=== PATIENT | male | born 1945 | race Caucasian/White ===

== ENCOUNTER 2022-12-31 16:41 | Inpatient (IN) | payer MEDICARE, OTHER, SELFPAY ==
[2022-12-31] VITALS (66 sets, daily range): BP systolic 103–177; BP diastolic 71–111; PULSE 78–159; RESP 16–38; TEMP 36.2–36.5; O2SAT 93–100; BMI 27.2; BMI 30.9
--- NOTE | 2022-12-31 16:56 | DI.RAD.S_ITS ---
PROCEDURE: XR CHEST 1V INDICATIONS: chest pain TECHNIQUE: One view of the chest was acquired. COMPARISON: None. FINDINGS: Surgical changes and devices: None. Lungs and pleura: Patchy opacities involving the medial right apex and bilateral lung bases. Suspected small bilateral pleural effusions. Diffuse interstitial prominence. Mediastinum: Mediastinal contours appear normal. Heart size is normal. Bones and chest wall: No suspicious bony lesions. Overlying soft tissues appear unremarkable. IMPRESSION: Patchy areas of airspace opacities involving the right upper lung zone and bilateral lung bases with associated diffuse interstitial prominence and small bilateral pleural effusions. Findings may represent multifocal pneumonia. Recommend follow up chest radiograph 4-6 weeks after treatment to document resolution of findings and/or return to baseline examination. Dictated by: Jose D Rodriguez M.D. on 12/31/2022 at 17:53 Approved by: Jose D Rodriguez M.D. on 12/31/2022 at 17:54
--- NOTE | 2022-12-31 17:11 | ED.GENADULT ---
HPI - General Adult <DO Delgado Campos Last Filed: 01/01/23 07:00> General Chief complaint: Shortness of Breath/Dyspnea Stated complaint: SOB Time Seen by Provider: 12/31/22 16:54 Source: patient Mode of arrival: Ambulatory History of Present Illness HPI narrative: Patient is a 77-year-old male. He does have a distant history of atrial fibrillation. Is not on anticoagulation. He also states he is had a blood clot in his legs in the past but that was many years ago as well. He recently had a [place]country plane ride. He arrived back locally approximately 4 days ago. Since that time he has had bilateral lower extremity swelling. He is also had shortness of breath. No chest pain. No palpitations. Denies any fevers. No abdominal pain. He has been able to take all of his medications. Related Data Home Medications Medication Instructions Recorded Confirmed clobetasol 0.05 % topical ointment 1 applic topical BID 12/31/22 12/31/22 lisinopril 40 mg tablet 40 mg PO DAILY 12/31/22 12/31/22 loratadine 10 mg tablet 10 mg PO DAILY 12/31/22 12/31/22 polyethylene glycol 3350 17 17 g PO DAILY 12/31/22 12/31/22 gram/dose oral powder simvastatin 40 mg tablet 40 mg PO ONCE PM 12/31/22 12/31/22 valacyclovir 1 gram tablet 1,000 mg PO BID 12/31/22 12/31/22 zolpidem 10 mg tablet 10 mg PO ONCE PM PRN Sleep 12/31/22 12/31/22 Allergies Allergy/AdvReac Type Severity Reaction Status Date / Time No Known Drug Allergies Allergy Verified 12/31/22 17:15 Review of Systems <Dimitry Morejon DO - Last Filed: 01/01/23 07:00> Review of Systems ROS Unobtainable: All systems reviewed & are unremarkable except as noted in HPI and below Patient History <Dimitry Morejon DO - Last Filed: 01/01/23 07:00> Social History household members: spouse Smoking Status: Former smoker alcohol intake: current Smoking Status: Former smoker alcohol intake frequency: 0-2 drinks per day Substance Use Type: does not use Exam <DO Delgado Campos Last Filed: 01/01/23 07:00> Initial Vital Signs Initial Vital Signs: Vital Signs Pulse Rate 78 12/31/22 16:44 Pulse Oximetry 97 12/31/22 16:44 Const General: cooperative, comfortable and No ill appearing HENMT Head: normal to inspection and normocephalic Resp Effort & Inspection: normal respiratory effort Auscultation: clear to auscultation bilaterally, no rhonchi and no wheezes Cardio Rate: tachycardic Rhythm: regular rhythm GI Inspection: normal to inspection Palpation: soft and No tender Skin General: no rashes or lesions noted Neuro General: patient alert, patient awake, patient oriented x3 and moves all extremities Speech: speech normal Gait: normal gait Extrem General: capillary refill normal and edema Psych Appearance: grossly normal <Spring Kelly DO - Last Filed: 01/01/23 03:07> Initial Vital Signs Initial Vital Signs: Vital Signs Pulse Rate 78 12/31/22 16:44 Pulse Oximetry 97 12/31/22 16:44 Course <Dimitry Morejon DO - Last Filed: 01/01/23 07:00> Orders Ordered: ED Orders 01/01/23 02:05 PTT Partial Thromboplastin Geoffrey Q6H 01/01/23 05:00 Hemoglobin and Hematocrit DAILY Platelet Count DAILY 01/01/23 06:00 PTT Partial Thromboplastin Geoffrey Q6H 01/01/23 12:00 PTT Partial Thromboplastin Geoffrey Q6H 01/02/23 05:00 Hemoglobin and Hematocrit DAILY Platelet Count DAILY Acetaminophen (Acetaminophen 325 Mg Tablet) 650 mg PO Q6H PRN PRN Reason: Fever/Mild Pain (1-3) Albuterol (Albuterol 2.5 Mg/3 Ml Neb (Adult)) 2.5 mg INH [id number] PRN PRN Reason: Dyspnea Apixaban (Apixaban 5 Mg Tablet) 5 mg PO BID [facility] Last Admin: 12/31/22 23:35 Dose: 5 mg Documented By: SR Bisacodyl (Bisacodyl 10 Mg Supp) 10 mg CA DAILY PRN PRN Reason: Constipation Calcium Carbonate (Calcium Carbonate 500 Mg Tab) 1,000 mg PO Q4HR PRN PRN Reason: Dyspepsia Furosemide (Furosemide 40 Mg/4 Ml Vial) 40 mg IV Q12HR [facility] Last Admin: 12/31/22 23:37 Dose: 40 mg Documented By: SR Lisinopril (Lisinopril 20 Mg Tablet) 40 mg PO DAILY [facility] Metoprolol Succinate (Metoprolol Er 25 Mg Tablet) 25 mg PO DAILY [facility] Last Admin: 12/31/22 23:34 Dose: 25 mg Documented By: SR Metoprolol Tartrate (Metoprolol Tartrate 5 Mg/5 Ml Inj) 5 mg IV Q6H PRN PRN Reason: Tachyarrhythmias Last Admin: 01/01/23 01:08 Dose: 5 mg Documented By: SR Naloxone HCl (Naloxone 0.4 Mg/Ml Vial) 0.2 mg IV Q2MIN PRN PRN Reason: Opiate Reversal Ondansetron HCl (Ondansetron 4 Mg/2 Ml Inj) 4 mg IV Q8HR PRN PRN Reason: Nausea And Vomiting Polyethylene Glycol (Polyethylene Glycol 3350 17 Gm Powd.Pack) 17 gm PO DAILY [facility] Sennosides (Sennosides 8.6 Mg Tablet) 17.2 mg PO BEDTIME [facility] Zolpidem Tartrate (Zolpidem 5 Mg Tablet) 10 mg PO BEDTIME PRN PRN Reason: Sleep Last Admin: 01/01/23 01:21 Dose: 10 mg Documented By: SR Discontinued Medications Aspirin (Aspirin 81 Mg Chew Tab) 324 mg PO NOW ONE Stop: 12/31/22 16:57 Last Admin: 12/31/22 17:23 Dose: 324 mg Documented By: SPF Atorvastatin Calcium (Atorvastatin 20 Mg Tablet) 20 mg PO BEDTIME [facility] Last Admin: 12/31/22 23:34 Dose: 20 mg Documented By: SR Diltiazem HCl (Diltiazem 5 Mg/Ml Sdv) 10 mg IV NOW ONE Stop: 12/31/22 17:13 Last Admin: 12/31/22 17:24 Dose: 10 mg Documented By: SPF Enoxaparin Sodium (Enoxaparin 40 Mg/0.4 Ml Syringe) 40 mg SUBCUT DAILY [facility] Furosemide (Furosemide 40 Mg/4 Ml Vial) 20 mg IV NOW ONE Stop: 12/31/22 19:21 Last Admin: 12/31/22 19:44 Dose: 20 mg Documented By: KB Heparin Sodium (Porcine) (Heparin 5,000 Unit/Ml Vial) 7,500 unit IV NOW ONE Stop: 12/31/22 17:53 Last Admin: 12/31/22 18:26 Dose: 7,500 unit Documented By: KENDALL DILTIAZEM (Diltiazem 125 Mg/125 Ml-D5w) 125 mg in 125 mls @ 5 mls/hr IV TITRATE ERIC; Protocol Last Titration: 12/31/22 19:40 Dose: 0 mg/hr, 0 mls/hr Documented By: Titration: 12/31/22 19:11 Dose: 15 mg/hr, 15 mls/hr Documented By: Titration: 12/31/22 18:54 Dose: 10 mg/hr, 10 mls/hr Documented By: Admin: 12/31/22 18:13 Dose: 5 mg/hr, 5 mls/hr Documented By: KENDALL Heparin Sodium/Dextrose (Heparin Drip) 25,000 unit in 500 mls @ 34.618 mls/hr IV CONT ERIC; Protocol Last Admin: 12/31/22 18:54 Dose: 18 units/kg/hr, 34.618 mls/hr Documented By: KENDALL Co-signed By: GERARDO Metoprolol Tartrate (Metoprolol Tartrate 5 Mg/5 Ml Inj) 5 mg IV Q5M ERIC Stop: 12/31/22 19:41 Last Admin: 12/31/22 22:49 Dose: Not Given Documented By: Admin: 12/31/22 20:20 Dose: 5 mg Documented By: Admin: 12/31/22 20:06 Dose: 5 mg Documented By: KENDALL Vital Signs Vital signs: Vital Signs - 8 hr 12/31/22 19:05 12/31/22 19:08 12/31/22 19:08 Pulse Rate 143 H 140 H Respiratory Rate 21 21 Blood Pressure 130/91 H Pulse Oximetry 95 95 Oxygen Delivery Method 12/31/22 19:10 12/31/22 19:10 12/31/22 19:15 Pulse Rate 147 H Respiratory Rate 22 Blood Pressure 157/96 H 143/91 H Pulse Oximetry 95 Oxygen Delivery Method 12/31/22 19:15 12/31/22 19:20 12/31/22 19:21 Pulse Rate 146 H 146 H 140 H Respiratory Rate 19 26 H 24 Blood Pressure Pulse Oximetry 94 94 95 Oxygen Delivery Method 12/31/22 19:21 12/31/22 19:25 12/31/22 19:30 Pulse Rate 146 H 139 H Respiratory Rate 22 23 Blood Pressure 126/98 H Pulse Oximetry 94 94 Oxygen Delivery Method 12/31/22 19:31 12/31/22 19:31 12/31/22 19:35 Pulse Rate 138 H Respiratory Rate 22 Blood Pressure 151/104 H 126/84 Pulse Oximetry 94 Oxygen Delivery Method 12/31/22 19:35 12/31/22 19:40 12/31/22 19:40 Pulse Rate 143 H 143 H Respiratory Rate 22 22 Blood Pressure 117/84 Pulse Oximetry 94 95 Oxygen Delivery Method 12/31/22 19:45 12/31/22 19:50 12/31/22 19:50 Pulse Rate 137 H 138 H Respiratory Rate 19 Blood Pressure 134/85 Pulse Oximetry 95 94 Oxygen Delivery Method Room Air Room Air 12/31/22 19:55 12/31/22 20:00 12/31/22 20:01 Pulse Rate 139 H 152 H Respiratory Rate 18 35 H Blood Pressure 154/96 H Pulse Oximetry 96 94 Oxygen Delivery Method Room Air 12/31/22 20:01 12/31/22 20:04 12/31/22 20:04 Pulse Rate 148 H 149 H Respiratory Rate 35 H 27 H Blood Pressure 132/97 H Pulse Oximetry 95 96 Oxygen Delivery Method Room Air Room Air 12/31/22 20:05 12/31/22 20:10 12/31/22 20:10 Pulse Rate 145 H 141 H Respiratory Rate 22 Blood Pressure 124/85 Pulse Oximetry 95 94 Oxygen Delivery Method 12/31/22 20:13 12/31/22 20:13 12/31/22 20:15 Pulse Rate 126 H 130 H Respiratory Rate 17 Blood Pressure 139/98 H Pulse Oximetry 93 95 Oxygen Delivery Method Room Air 12/31/22 20:17 12/31/22 20:17 12/31/22 20:20 Pulse Rate 127 H 130 H Respiratory Rate 24 Blood Pressure 125/74 Pulse Oximetry 95 97 Oxygen Delivery Method Room Air 12/31/22 20:21 12/31/22 20:21 12/31/22 20:24 Pulse Rate 127 H Respiratory Rate 20 Blood Pressure 109/85 103/86 Pulse Oximetry 96 Oxygen Delivery Method 12/31/22 20:24 12/31/22 20:25 12/31/22 20:25 Pulse Rate 129 H 126 H Respiratory Rate 23 25 H Blood Pressure 105/86 Pulse Oximetry 94 94 Oxygen Delivery Method Room Air Room Air 12/31/22 20:30 12/31/22 20:30 12/31/22 20:35 Pulse Rate 118 H Respiratory Rate 24 Blood Pressure 110/90 106/85 Pulse Oximetry 94 Oxygen Delivery Method Room Air 12/31/22 20:35 12/31/22 20:40 Pulse Rate 117 H 119 H Respiratory Rate 25 H 24 Blood Pressure Pulse Oximetry 96 95 Oxygen Delivery Method <Spring Kelly DO - Last Filed: 01/01/23 03:07> Orders Ordered: ED Orders 01/01/23 02:05 PTT Partial Thromboplastin Geoffrey Q6H 01/01/23 05:00 Hemoglobin and Hematocrit DAILY Platelet Count DAILY 01/01/23 06:00 PTT Partial Thromboplastin Geoffrey Q6H 01/01/23 12:00 PTT Partial Thromboplastin Geoffrey Q6H 01/02/23 05:00 Hemoglobin and Hematocrit DAILY Platelet Count DAILY Acetaminophen (Acetaminophen 325 Mg Tablet) 650 mg PO Q6H PRN PRN Reason: Fever/Mild Pain (1-3) Albuterol (Albuterol 2.5 Mg/3 Ml Neb (Adult)) 2.5 mg INH [id number] PRN PRN Reason: Dyspnea Apixaban (Apixaban 5 Mg Tablet) 5 mg PO BID [facility] Last Admin: 12/31/22 23:35 Dose: 5 mg Documented By: SR Bisacodyl (Bisacodyl 10 Mg Supp) 10 mg CA DAILY PRN PRN Reason: Constipation Calcium Carbonate (Calcium Carbonate 500 Mg Tab) 1,000 mg PO Q4HR PRN PRN Reason: Dyspepsia Furosemide (Furosemide 40 Mg/4 Ml Vial) 40 mg IV Q12HR [facility] Last Admin: 12/31/22 23:37 Dose: 40 mg Documented By: SR Lisinopril (Lisinopril 20 Mg Tablet) 40 mg PO DAILY [facility] Metoprolol Succinate (Metoprolol Er 25 Mg Tablet) 25 mg PO DAILY [facility] Last Admin: 12/31/22 23:34 Dose: 25 mg Documented By: SR Metoprolol Tartrate (Metoprolol Tartrate 5 Mg/5 Ml Inj) 5 mg IV Q6H PRN PRN Reason: Tachyarrhythmias Last Admin: 01/01/23 01:08 Dose: 5 mg Documented By: SR Naloxone HCl (Naloxone 0.4 Mg/Ml Vial) 0.2 mg IV Q2MIN PRN PRN Reason: Opiate Reversal Ondansetron HCl (Ondansetron 4 Mg/2 Ml Inj) 4 mg IV Q8HR PRN PRN Reason: Nausea And Vomiting Polyethylene Glycol (Polyethylene Glycol 3350 17 Gm Powd.Pack) 17 gm PO DAILY [facility] Sennosides (Sennosides 8.6 Mg Tablet) 17.2 mg PO BEDTIME [facility] Zolpidem Tartrate (Zolpidem 5 Mg Tablet) 10 mg PO BEDTIME PRN PRN Reason: Sleep Last Admin: 01/01/23 01:21 Dose: 10 mg Documented By: SR Discontinued Medications Aspirin (Aspirin 81 Mg Chew Tab) 324 mg PO NOW ONE Stop: 12/31/22 16:57 Last Admin: 12/31/22 17:23 Dose: 324 mg Documented By: SPF Atorvastatin Calcium (Atorvastatin 20 Mg Tablet) 20 mg PO BEDTIME [facility] Last Admin: 12/31/22 23:34 Dose: 20 mg Documented By: SR Diltiazem HCl (Diltiazem 5 Mg/Ml Sdv) 10 mg IV NOW ONE Stop: 12/31/22 17:13 Last Admin: 12/31/22 17:24 Dose: 10 mg Documented By: SPF Enoxaparin Sodium (Enoxaparin 40 Mg/0.4 Ml Syringe) 40 mg SUBCUT DAILY [facility] Furosemide (Furosemide 40 Mg/4 Ml Vial) 20 mg IV NOW ONE Stop: 12/31/22 19:21 Last Admin: 12/31/22 19:44 Dose: 20 mg Documented By: GERARDO Heparin Sodium (Porcine) (Heparin 5,000 Unit/Ml Vial) 7,500 unit IV NOW ONE Stop: 12/31/22 17:53 Last Admin: 12/31/22 18:26 Dose: 7,500 unit Documented By: SPF DILTIAZEM (Diltiazem 125 Mg/125 Ml-D5w) 125 mg in 125 mls @ 5 mls/hr IV TITRATE ERIC; Protocol Last Titration: 12/31/22 19:40 Dose: 0 mg/hr, 0 mls/hr Documented By: Titration: 12/31/22 19:11 Dose: 15 mg/hr, 15 mls/hr Documented By: Titration: 12/31/22 18:54 Dose: 10 mg/hr, 10 mls/hr Documented By: Admin: 12/31/22 18:13 Dose: 5 mg/hr, 5 mls/hr Documented By: KENDALL Heparin Sodium/Dextrose (Heparin Drip) 25,000 unit in 500 mls @ 34.618 mls/hr IV CONT ERIC; Protocol Last Admin: 12/31/22 18:54 Dose: 18 units/kg/hr, 34.618 mls/hr Documented By: KENDALL Co-signed By: GERARDO Metoprolol Tartrate (Metoprolol Tartrate 5 Mg/5 Ml Inj) 5 mg IV Q5M [facility] Stop: 12/31/22 19:41 Last Admin: 12/31/22 22:49 Dose: Not Given Documented By: Admin: 12/31/22 20:20 Dose: 5 mg Documented By: Admin: 12/31/22 20:06 Dose: 5 mg Documented By: KENDALL Vital Signs Vital signs: Vital Signs - 8 hr 12/31/22 19:05 12/31/22 19:08 12/31/22 19:08 Pulse Rate 143 H 140 H Respiratory Rate 21 21 Blood Pressure 130/91 H Pulse Oximetry 95 95 Oxygen Delivery Method 12/31/22 19:10 12/31/22 19:10 12/31/22 19:15 Pulse Rate 147 H Respiratory Rate 22 Blood Pressure 157/96 H 143/91 H Pulse Oximetry 95 Oxygen Delivery Method 12/31/22 19:15 12/31/22 19:20 12/31/22 19:21 Pulse Rate 146 H 146 H 140 H Respiratory Rate 19 26 H 24 Blood Pressure Pulse Oximetry 94 94 95 Oxygen Delivery Method 12/31/22 19:21 12/31/22 19:25 12/31/22 19:30 Pulse Rate 146 H 139 H Respiratory Rate 22 23 Blood Pressure 126/98 H Pulse Oximetry 94 94 Oxygen Delivery Method 12/31/22 19:31 12/31/22 19:31 12/31/22 19:35 Pulse Rate 138 H Respiratory Rate 22 Blood Pressure 151/104 H 126/84 Pulse Oximetry 94 Oxygen Delivery Method 12/31/22 19:35 12/31/22 19:40 12/31/22 19:40 Pulse Rate 143 H 143 H Respiratory Rate 22 22 Blood Pressure 117/84 Pulse Oximetry 94 95 Oxygen Delivery Method 12/31/22 19:45 12/31/22 19:50 12/31/22 19:50 Pulse Rate 137 H 138 H Respiratory Rate 19 Blood Pressure 134/85 Pulse Oximetry 95 94 Oxygen Delivery Method Room Air Room Air 12/31/22 19:55 12/31/22 20:00 12/31/22 20:01 Pulse Rate 139 H 152 H Respiratory Rate 18 35 H Blood Pressure 154/96 H Pulse Oximetry 96 94 Oxygen Delivery Method Room Air 12/31/22 20:01 12/31/22 20:04 12/31/22 20:04 Pulse Rate 148 H 149 H Respiratory Rate 35 H 27 H Blood Pressure 132/97 H Pulse Oximetry 95 96 Oxygen Delivery Method Room Air Room Air 12/31/22 20:05 12/31/22 20:10 12/31/22 20:10 Pulse Rate 145 H 141 H Respiratory Rate 22 Blood Pressure 124/85 Pulse Oximetry 95 94 Oxygen Delivery Method 12/31/22 20:13 12/31/22 20:13 12/31/22 20:15 Pulse Rate 126 H 130 H Respiratory Rate 17 Blood Pressure 139/98 H Pulse Oximetry 93 95 Oxygen Delivery Method Room Air 12/31/22 20:17 12/31/22 20:17 12/31/22 20:20 Pulse Rate 127 H 130 H Respiratory Rate 24 Blood Pressure 125/74 Pulse Oximetry 95 97 Oxygen Delivery Method Room Air 12/31/22 20:21 12/31/22 20:21 12/31/22 20:24 Pulse Rate 127 H Respiratory Rate 20 Blood Pressure 109/85 103/86 Pulse Oximetry 96 Oxygen Delivery Method 12/31/22 20:24 12/31/22 20:25 12/31/22 20:25 Pulse Rate 129 H 126 H Respiratory Rate 23 25 H Blood Pressure 105/86 Pulse Oximetry 94 94 Oxygen Delivery Method Room Air Room Air 12/31/22 20:30 12/31/22 20:30 12/31/22 20:35 Pulse Rate 118 H Respiratory Rate 24 Blood Pressure 110/90 106/85 Pulse Oximetry 94 Oxygen Delivery Method Room Air 12/31/22 20:35 12/31/22 20:40 Pulse Rate 117 H 119 H Respiratory Rate 25 H 24 Blood Pressure Pulse Oximetry 96 95 Oxygen Delivery Method Medical Decision Making <Dimitry Morejon DO - Last Filed: 01/01/23 07:00> Lab Data Lab results reviewed: Yes I reviewed the patient's lab results. 12/31/22 16:54 12/31/22 16:54 Labs: Lab Results 12/31/22 12/31/22 12/31/22 Range/Units 16:54 16:54 16:54 WBC 8.9 (4.5-11.0) X10^3/uL RBC 4.34 L (4.5-5.9) X10^6/uL Hgb 14.9 (13.5-17.5) g/dL Hct 43.5 (41-53) % MCV 100.2 H (80-100) fL MCH 34.4 H (26-34) PG MCHC 34.3 (30-36) % RDW 13.6 (11.6-14.8) % Plt Count 318 (150-400) X10^3/uL Neut % (Auto) 62.6 (50-75) % Lymph % (Auto) 22.7 L (25-40) % [place] % (Auto) 11.4 (3-14) % Eos % (Auto) 2.2 (2-4) % Baso % (Auto) 1.1 (0-2) % Neut # (Auto) 5600 (1932-2004) /uL Lymph # (Auto) 2000 (1979-4569) /uL [place] # (Auto) 1000 H (0-900) /uL Eos # (Auto) 200 (0-450) /uL Baso # (Auto) 100 (0-100) /uL PT (10.1-12.7) SECONDS INR (0.9-1.3) APTT (26-36) SECONDS Sodium (137-145) mmol/L Potassium (3.4-5.1) mmol/L Chloride (98-107) mmol/L Carbon Dioxide (22-32) mmol/L BUN (9-20) mg/dL Creatinine (0.66-1.25) mg/dL Estimated GFR (>60) mL/min BUN/Creatinine Ratio (6-22) Glucose (80-110) mg/dL Lactate Cancelled Calcium (8.4-10.2) mg/dL Magnesium (1.6-2.3) mg/dL Total Bilirubin (0.2-1.3) mg/dL AST (17-59) IU/L ALT (<50) IU/L Alkaline Phosphatase (38-126) U/L Total Creatine Kinase (55-170) U/L Troponin I Cancelled NT-Pro-B Natriuret Pep 3110 H (<450) pg/mL Total Protein (6.3-8.2) g/dL Albumin (3.5-5.0) g/dL Globulin (1.7-4.1) g/dL Albumin/Globulin Ratio (1.0-2.8) Lipase (23-300) U/L SARS-CoV-2 (PCR) (Negative) 12/31/22 12/31/22 12/31/22 Range/Units 16:54 16:54 18:55 WBC (4.5-11.0) X10^3/uL RBC (4.5-5.9) X10^6/uL Hgb (13.5-17.5) g/dL Hct (41-53) % MCV (80-100) fL MCH (26-34) PG MCHC (30-36) % RDW (11.6-14.8) % Plt Count (150-400) X10^3/uL Neut % (Auto) (50-75) % Lymph % (Auto) (25-40) % [place] % (Auto) (3-14) % Eos % (Auto) (2-4) % Baso % (Auto) (0-2) % Neut # (Auto) (7578-4130) /uL Lymph # (Auto) (4459-4778) /uL [place] # (Auto) (0-900) /uL Eos # (Auto) (0-450) /uL Baso # (Auto) (0-100) /uL PT 13.9 H (10.1-12.7) SECONDS INR 1.2 (0.9-1.3) APTT 34 (26-36) SECONDS Sodium 137 (137-145) mmol/L Potassium 4.0 (3.4-5.1) mmol/L Chloride 106 (98-107) mmol/L Carbon Dioxide 19 L (22-32) mmol/L BUN 21 H (9-20) mg/dL Creatinine 1.05 (0.66-1.25) mg/dL Estimated GFR > 60 (>60) mL/min BUN/Creatinine Ratio 20.0 (6-22) Glucose 117 H (80-110) mg/dL Lactate Calcium 9.4 (8.4-10.2) mg/dL Magnesium 2.0 (1.6-2.3) mg/dL Total Bilirubin 1.4 H (0.2-1.3) mg/dL AST 64 H (17-59) IU/L ALT 71 H (<50) IU/L Alkaline Phosphatase 82 (38-126) U/L Total Creatine Kinase 227 H (55-170) U/L Troponin I 0.394 H* NT-Pro-B Natriuret Pep (<450) pg/mL Total Protein 6.8 (6.3-8.2) g/dL Albumin 3.9 (3.5-5.0) g/dL Globulin 2.9 (1.7-4.1) g/dL Albumin/Globulin Ratio 1.3 (1.0-2.8) Lipase 190 (23-300) U/L SARS-CoV-2 (PCR) Negative (Negative) 12/31/22 Range/Units 19:44 WBC (4.5-11.0) X10^3/uL RBC (4.5-5.9) X10^6/uL Hgb (13.5-17.5) g/dL Hct (41-53) % MCV (80-100) fL MCH (26-34) PG MCHC (30-36) % RDW (11.6-14.8) % Plt Count (150-400) X10^3/uL Neut % (Auto) (50-75) % Lymph % (Auto) (25-40) % [place] % (Auto) (3-14) % Eos % (Auto) (2-4) % Baso % (Auto) (0-2) % Neut # (Auto) (2395-2507) /uL Lymph # (Auto) (8457-2031) /uL [place] # (Auto) (0-900) /uL Eos # (Auto) (0-450) /uL Baso # (Auto) (0-100) /uL PT (10.1-12.7) SECONDS INR (0.9-1.3) APTT (26-36) SECONDS Sodium (137-145) mmol/L Potassium (3.4-5.1) mmol/L Chloride (98-107) mmol/L Carbon Dioxide (22-32) mmol/L BUN (9-20) mg/dL Creatinine (0.66-1.25) mg/dL Estimated GFR (>60) mL/min BUN/Creatinine Ratio (6-22) Glucose (80-110) mg/dL Lactate Calcium (8.4-10.2) mg/dL Magnesium (1.6-2.3) mg/dL Total Bilirubin (0.2-1.3) mg/dL AST (17-59) IU/L ALT (<50) IU/L Alkaline Phosphatase (38-126) U/L Total Creatine Kinase (55-170) U/L Troponin I 0.386 H* NT-Pro-B Natriuret Pep (<450) pg/mL Total Protein (6.3-8.2) g/dL Albumin (3.5-5.0) g/dL Globulin (1.7-4.1) g/dL Albumin/Globulin Ratio (1.0-2.8) Lipase (23-300) U/L SARS-CoV-2 (PCR) (Negative) Imaging Data Chest x-ray: Radiologist's Impression: PROCEDURE:? XR CHEST 1V ? INDICATIONS:? chest pain ? TECHNIQUE:? One view of the chest was acquired.? ? COMPARISON:? None. ? FINDINGS:? ? Surgical changes and devices:? None.? ? Lungs and pleura:? Patchy opacities involving the medial right apex and bilateral lung bases.? Suspected small bilateral pleural effusions.? Diffuse interstitial prominence. ? Mediastinum:? Mediastinal contours appear normal.? Heart size is normal.? ? Bones and chest wall:? No suspicious bony lesions.? Overlying soft tissues appear unremarkable.? ? IMPRESSION:? Patchy areas of airspace opacities involving the right upper lung zone and bilateral lung bases with associated diffuse interstitial prominence and small bilateral pleural effusions.? Findings may represent multifocal pneumonia. ? Recommend follow up chest radiograph 4-6 weeks after treatment to document resolution of findings and/or return to baseline examination. US - DVT: Radiologist's Impression: PROCEDURE:? US PERIPH VENOUS LOW EXTREM BI ? INDICATIONS:? SWELLING RECENT TRAVEL EVAL FOR DVT ? TECHNIQUE:? Real-time imaging, as well as color and pulse Doppler interrogation, were performed of the deep veins of both legs from the inguinal ligament to the popliteal fossa, with documentation of the visualized calf veins.? ? COMPARISON:? None. ? FINDINGS:? ? Right: The common femoral, femoral, popliteal, and the visualized calf veins are normally compressible, and free of intraluminal thrombus.? Color and pulse Doppler demonstrate normal phasic intravascular flow.? There is normal augmentation response to distal compression maneuver.? ? Left: The common femoral, femoral, popliteal, and the visualized calf veins are normally compressible, and free of intraluminal thrombus.? Color and pulse Doppler demonstrate normal phasic intravascular flow.? There is normal augmentation response to distal compression maneuver.? ? ? IMPRESSION:? No findings of deep venous thrombosis in either lower extremity. ECG Data Attestation: I personally reviewed and interpreted this ECG as follows: Interpretation: Atrial fibrillation Ventricular rate 148 Left axis deviation Right bundle branch block Normal QRS Nonspecific ST T wave changes MDM Narrative Medical decision making narrative: Patient has a history of AFib that was many years ago. He is not on anticoagulation. He would a recent travel. He is in AFib with rapid heart rate. He does not have any palpitations. He is not hypoxic. Does have bilateral lower extremity swelling. His chest x-ray is concerning for multifocal pneumonia however given his presentation would be more concerned about pulmonary embolism. Patient not a candidate for rhythm control based on the unknown start of his AFib and the fact that he is not anticoagulated. He was started on rate control with diltiazem. His troponin was also elevated. Started on heparin. No indication for antibiotics. No fevers. CT scan of the chest ordered. Care turned over to Dr. Kelly to follow-up and disposition. <Spring Kelly, DO - Last Filed: 01/01/23 03:07> Lab Data Labs: Lab Results 12/31/22 12/31/22 12/31/22 Range/Units 16:54 16:54 16:54 WBC 8.9 (4.5-11.0) X10^3/uL RBC 4.34 L (4.5-5.9) X10^6/uL Hgb 14.9 (13.5-17.5) g/dL Hct 43.5 (41-53) % MCV 100.2 H (80-100) fL MCH 34.4 H (26-34) PG MCHC 34.3 (30-36) % RDW 13.6 (11.6-14.8) % Plt Count 318 (150-400) X10^3/uL Neut % (Auto) 62.6 (50-75) % Lymph % (Auto) 22.7 L (25-40) % [place] % (Auto) 11.4 (3-14) % Eos % (Auto) 2.2 (2-4) % Baso % (Auto) 1.1 (0-2) % Neut # (Auto) 5600 (4735-3309) /uL Lymph # (Auto) 2000 (4139-9197) /uL [place] # (Auto) 1000 H (0-900) /uL Eos # (Auto) 200 (0-450) /uL Baso # (Auto) 100 (0-100) /uL PT (10.1-12.7) SECONDS INR (0.9-1.3) APTT (26-36) SECONDS Sodium (137-145) mmol/L Potassium (3.4-5.1) mmol/L Chloride (98-107) mmol/L Carbon Dioxide (22-32) mmol/L BUN (9-20) mg/dL Creatinine (0.66-1.25) mg/dL Estimated GFR (>60) mL/min BUN/Creatinine Ratio (6-22) Glucose (80-110) mg/dL Lactate Cancelled Calcium (8.4-10.2) mg/dL Magnesium (1.6-2.3) mg/dL Total Bilirubin (0.2-1.3) mg/dL AST (17-59) IU/L ALT (<50) IU/L Alkaline Phosphatase (38-126) U/L Total Creatine Kinase (55-170) U/L Troponin I Cancelled NT-Pro-B Natriuret Pep 3110 H (<450) pg/mL Total Protein (6.3-8.2) g/dL Albumin (3.5-5.0) g/dL Globulin (1.7-4.1) g/dL Albumin/Globulin Ratio (1.0-2.8) Lipase (23-300) U/L SARS-CoV-2 (PCR) (Negative) 12/31/22 12/31/22 12/31/22 Range/Units 16:54 16:54 18:55 WBC (4.5-11.0) X10^3/uL RBC (4.5-5.9) X10^6/uL Hgb (13.5-17.5) g/dL Hct (41-53) % MCV (80-100) fL MCH (26-34) PG MCHC (30-36) % RDW (11.6-14.8) % Plt Count (150-400) X10^3/uL Neut % (Auto) (50-75) % Lymph % (Auto) (25-40) % [place] % (Auto) (3-14) % Eos % (Auto) (2-4) % Baso % (Auto) (0-2) % Neut # (Auto) (9571-6255) /uL Lymph # (Auto) (0444-3777) /uL [place] # (Auto) (0-900) /uL Eos # (Auto) (0-450) /uL Baso # (Auto) (0-100) /uL PT 13.9 H (10.1-12.7) SECONDS INR 1.2 (0.9-1.3) APTT 34 (26-36) SECONDS Sodium 137 (137-145) mmol/L Potassium 4.0 (3.4-5.1) mmol/L Chloride 106 (98-107) mmol/L Carbon Dioxide 19 L (22-32) mmol/L BUN 21 H (9-20) mg/dL Creatinine 1.05 (0.66-1.25) mg/dL Estimated GFR > 60 (>60) mL/min BUN/Creatinine Ratio 20.0 (6-22) Glucose 117 H (80-110) mg/dL Lactate Calcium 9.4 (8.4-10.2) mg/dL Magnesium 2.0 (1.6-2.3) mg/dL Total Bilirubin 1.4 H (0.2-1.3) mg/dL AST 64 H (17-59) IU/L ALT 71 H (<50) IU/L Alkaline Phosphatase 82 (38-126) U/L Total Creatine Kinase 227 H (55-170) U/L Troponin I 0.394 H* NT-Pro-B Natriuret Pep (<450) pg/mL Total Protein 6.8 (6.3-8.2) g/dL Albumin 3.9 (3.5-5.0) g/dL Globulin 2.9 (1.7-4.1) g/dL Albumin/Globulin Ratio 1.3 (1.0-2.8) Lipase 190 (23-300) U/L SARS-CoV-2 (PCR) Negative (Negative) 12/31/22 Range/Units 19:44 WBC (4.5-11.0) X10^3/uL RBC (4.5-5.9) X10^6/uL Hgb (13.5-17.5) g/dL Hct (41-53) % MCV (80-100) fL MCH (26-34) PG MCHC (30-36) % RDW (11.6-14.8) % Plt Count (150-400) X10^3/uL Neut % (Auto) (50-75) % Lymph % (Auto) (25-40) % [place] % (Auto) (3-14) % Eos % (Auto) (2-4) % Baso % (Auto) (0-2) % Neut # (Auto) (3287-5323) /uL Lymph # (Auto) (8958-0322) /uL [place] # (Auto) (0-900) /uL Eos # (Auto) (0-450) /uL Baso # (Auto) (0-100) /uL PT (10.1-12.7) SECONDS INR (0.9-1.3) APTT (26-36) SECONDS Sodium (137-145) mmol/L Potassium (3.4-5.1) mmol/L Chloride (98-107) mmol/L Carbon Dioxide (22-32) mmol/L BUN (9-20) mg/dL Creatinine (0.66-1.25) mg/dL Estimated GFR (>60) mL/min BUN/Creatinine Ratio (6-22) Glucose (80-110) mg/dL Lactate Calcium (8.4-10.2) mg/dL Magnesium (1.6-2.3) mg/dL Total Bilirubin (0.2-1.3) mg/dL AST (17-59) IU/L ALT (<50) IU/L Alkaline Phosphatase (38-126) U/L Total Creatine Kinase (55-170) U/L Troponin I 0.386 H* NT-Pro-B Natriuret Pep (<450) pg/mL Total Protein (6.3-8.2) g/dL Albumin (3.5-5.0) g/dL Globulin (1.7-4.1) g/dL Albumin/Globulin Ratio (1.0-2.8) Lipase (23-300) U/L SARS-CoV-2 (PCR) (Negative) MDM Narrative Medical decision making narrative: Patient has a history of AFib that was many years ago. He is not on anticoagulation. He would a recent travel. He is in AFib with rapid heart rate. He does not have any palpitations. He is not hypoxic. Does have bilateral lower extremity swelling. His chest x-ray is concerning for multifocal pneumonia however given his presentation would be more concerned about pulmonary embolism. Patient not a candidate for rhythm control based on the unknown start of his AFib and the fact that he is not anticoagulated. He was started on rate control with diltiazem. His troponin was also elevated. Started on heparin. No indication for antibiotics. No fevers. CT scan of the chest ordered. Care turned over to Dr. Kelly to follow-up and disposition. Dr. Sampson received sign-out from Dr. Morejon of seen evaluated patient myself. Patient has new onset atrial fibrillation with heart rate in the 50s not controlled on diltiazem drip. Diltiazem drip has been maxed out. He actually responded very well to 1 dose of IV Lopressor. He is found to have new onset congestive heart failure with elevated BNP of 3100. He is given 1 dose of Lasix 20 mg IV Troponins are also elevated 0.39 and 0.38. This is be secondary to rapid ventricular rate. No ST changes. CT is negative for pulmonary embolism. Dr. Jacinto on-call cardiology updated on patient's symptoms test results agrees there is no need to transfer. Does not need a heparin drip can be started on Eliquis. Dr. Cordero accepts patient Discharge Plan Departure Patient Disposition: Admitted As Inpatient Clinical Impression: Atrial fibrillation with rapid ventricular response, Congestive heart failure Admit Date/Time: 12/31/22 20:41 Admit Provider: Mazin Cordero
--- NOTE | 2022-12-31 17:12 | DI.CT.S_ITS ---
PROCEDURE: CT ANGIO CHEST PE PROTOCOL INDICATIONS: Chest pain, shortness of breath, tachycardia TECHNIQUE: After the administration of intravenous contrast, 2 mm thick sections acquired from the pulmonary apices to the posterior costophrenic angles. 3-dimensional maximum intensity projection (MIP) coronal and sagittal reformats were then acquired through the thorax. For radiation dose reduction, the following was used: automated exposure control, adjustment of mA and/or kV according to patient size. COMPARISON: None. FINDINGS: Image quality: Diagnostic Pulmonary arteries: Pulmonary arteries are normal in size, and demonstrate no intraluminal filling defects to suggest central pulmonary embolism. Lungs and pleura: Scattered patchy, irregular airspace opacities involving the right upper lobe, left upper lobe, bilateral lung bases with small bilateral pleural effusions which is larger on the right. Associated compressive atelectasis. Mild smooth septal thickening. No pneumothorax Central and peripheral airways are patent. Mild perihilar airway thickening bilaterally. Mediastinum: Heart size is mildly enlarged. Coronary atherosclerotic vascular calcifications are noted. No pericardial effusion. Multiple prominent mediastinal and hilar lymph nodes which are more notable for number rather than size are favored to represent reactive adenopathy. Thoracic aorta is normal in caliber and enhancement. Esophagus is normal in caliber, without hiatal hernia. Bones and chest wall: No suspicious bony lesions. Ribs and thoracic spine appear intact throughout. Thyroid gland unremarkable. No axillary or supraclavicular adenopathy. Abdomen: Visualized upper abdominal solid organs appear normal in the early arterial phase of enhancement. Prominent posterior left renal cyst incompletely imaged. IMPRESSION: 1. No acute pulmonary emboli. 2. Multiple scattered patchy irregular airspace opacities involving the bilateral hemithoraces likely related to infectious/inflammatory process. Associated perihilar airway thickening and bilateral pleural effusions. Multiple scattered prominent mediastinal lymph nodes likely reactive in etiology. Recommend follow-up chest CT in 3 months to document resolution versus stability. 3. Mild cardiomegaly with smooth septal thickening. Findings may be related to early pulmonary edema if clinically appropriate. 4. Atherosclerotic vascular disease. Dictated by: Jose D Rodriguez M.D. on 12/31/2022 at 19:04 Approved by: Jose D Rodriguez M.D. on 12/31/2022 at 19:10
--- NOTE | 2022-12-31 17:12 | DI.US.S_ITS ---
PROCEDURE: US PERIPH VENOUS LOW EXTREM BI INDICATIONS: SWELLING RECENT TRAVEL EVAL FOR DVT TECHNIQUE: Real-time imaging, as well as color and pulse Doppler interrogation, were performed of the deep veins of both legs from the inguinal ligament to the popliteal fossa, with documentation of the visualized calf veins. COMPARISON: None. FINDINGS: Right: The common femoral, femoral, popliteal, and the visualized calf veins are normally compressible, and free of intraluminal thrombus. Color and pulse Doppler demonstrate normal phasic intravascular flow. There is normal augmentation response to distal compression maneuver. Left: The common femoral, femoral, popliteal, and the visualized calf veins are normally compressible, and free of intraluminal thrombus. Color and pulse Doppler demonstrate normal phasic intravascular flow. There is normal augmentation response to distal compression maneuver. IMPRESSION: No findings of deep venous thrombosis in either lower extremity. Dictated by: Jose D Rodriguez M.D. on 12/31/2022 at 17:52 Approved by: Jose D Rodriguez M.D. on 12/31/2022 at 17:53
[2022-12-31 17:15] LABS: Add Manual Diff / Slide Review NO; Basophils Absolute Auto 100 /uL (0-100); Basophils Percent Auto 1.1 % (0-2); Eosinophils Absolute Auto 200 /uL (0-450); Eosinophils Percent Auto 2.2 % (2-4); Hematocrit 43.5 % (41-53); Hemoglobin 14.9 g/dL (13.5-17.5); Lymphocytes Absolute Auto 2000 /uL (1100-4500); Lymphocytes Percent Auto 22.7 % (25-40); Mean Corpuscular HGB Conc 34.3 % (30-36); Mean Corpuscular Hemoglobin 34.4 PG (26-34); Mean Corpuscular Volume 100.2 fL (80-100); Monocytes Absolute Auto 1000 /uL (0-900); Monocytes Percent Auto 11.4 % (3-14); Neutrophils Absolute Auto 5600 /uL (1500-7000); Neutrophils Percent Auto 62.6 % (50-75); Platelet Count 318 X10^3/uL (150-400); Red Blood Cell Count 4.34 X10^6/uL (4.5-5.9); Red Cell Distribution Width 13.6 % (11.6-14.8); White Blood Cell Count 8.9 X10^3/uL (4.5-11.0)
[2022-12-31 17:18] LABS: INR 1.2 (0.9-1.3); Prothrombin Time 13.9 SECONDS (10.1-12.7)
[2022-12-31 17:21] LABS: PTT Partial Thromboplastin Tim 34 SECONDS (26-36)
[2022-12-31 17:22] LABS: Alanine Aminotransferase 71 IU/L (<50); Albumin 3.9 g/dL (3.5-5.0); Albumin Globulin Ratio 1.3 (1.0-2.8); Alkaline Phosphatase 82 U/L (38-126); Aspartate Aminotransferase 64 IU/L (17-59); Bilirubin Total 1.4 mg/dL (0.2-1.3); Blood Urea Nitrogen 21 mg/dL (9-20); Calcium 9.4 mg/dL (8.4-10.2); Carbon Dioxide 19 mmol/L (22-32); Chloride 106 mmol/L (98-107); Creatine Kinase 227 U/L (55-170); Estimated Glomerular Filt Rate > 60 mL/min (>60); Globulin 2.9 g/dL (1.7-4.1); Glucose 117 mg/dL (80-110); HEMOLYSIS < 15 (0-50); Lipase 190 U/L (23-300); Sodium 137 mmol/L (137-145); Total Protein 6.8 g/dL (6.3-8.2)
[2022-12-31] MEDS: ASPIRIN 81 MG CHEW TAB 324 MG PO (17:23)
[2022-12-31] MEDS: dilTIAZem 5 MG/ML SDV 10 MG IV (17:24)
[2022-12-31 17:38] LABS: Troponin I 0.394 ng/mL (0.01-0.034)
[2022-12-31 17:41] LABS: NT-proBNP (BNP-Adult 18+) 3110 pg/mL (<450)
[2022-12-31] MEDS: DILTIAZEM 125 MG/125 ML PIGGYBACK IV (18:13)
[2022-12-31] MEDS: HEPARIN 5,000 UNIT/ML VIAL 7500 UNIT IV (18:26)
[2022-12-31] MEDS: HEPARIN DRIP 25,000 UNIT/500 ML IV.SOLN 34.618 UNIT IV (18:54)
[2022-12-31 19:10] LABS: COVID19 -Nasal RAPID Negative (Negative)
[2022-12-31] MEDS: FUROSEMIDE 40 MG/4 ML VIAL 20 MG IV (19:44)
[2022-12-31] MEDS: METOPROLOL TARTRATE 5 MG/5 ML INJ IV ×2 (20:06→20:20)
[2022-12-31 20:17] LABS: Troponin I 0.386 ng/mL (0.01-0.034)
[2022-12-31] MEDS: METOPROLOL ER 25 MG TABLET PO (23:34)
[2022-12-31] MEDS: ATORVASTATIN 20 MG TABLET PO (23:34)
[2022-12-31] MEDS: APIXABAN 5 MG TABLET PO (23:35)
[2022-12-31] MEDS: FUROSEMIDE 40 MG/4 ML VIAL IV (23:37)
[2022-12-31 23:59] LABS: Cholesterol 126 mg/dL (140-199); HDL Cholesterol 39 mg/dL (40-60); LDL Cholesterol Calculated 74 mg/dL (<100); Triglycerides 67 mg/dL (35-150)
[2023-01-01] VITALS (16 sets, daily range): BP systolic 110–130; BP diastolic 82–95; PULSE 70–141; RESP 17–23; TEMP 36–36.7; O2SAT 93–100
[2023-01-01 00:17] LABS: Procalcitonin 0.11 ng/mL (<0.5)
[2023-01-01 00:40] LABS: Troponin I 0.304 ng/mL (0.01-0.034)
[2023-01-01 01:04] LABS: Thyroid Stimulating Hormone 1.69 uIU/mL (0.47-4.68)
[2023-01-01] MEDS: METOPROLOL TARTRATE 5 MG/5 ML INJ IV (01:08)
[2023-01-01] MEDS: ZOLPIDEM 5 MG TABLET 10 MG PO (01:21)
[2023-01-01 02:33] LABS: PTT Partial Thromboplastin Tim 73 SECONDS (26-36)
--- NOTE | 2023-01-01 03:43 | P.HP_ITS ---
History of Present Illness History of Present Illness Chief complaint: SOB Narrative: Patient is a 77-year-old male With history of atrial fibrillation, hypertension, hyperlipidemia presents to the ER with shortness of breath with dry cough and bilateral lower extremities edema in the last several days getting progressively worse. The symptoms got worse after he had a long flight 4 days ago for more than 10 hours.?Denies any chest pain, fever, nausea, vomiting, abdominal pain, there are dysuria.? He also states he is had a blood clot in his legs in the past but that was many years ago as well.? He has been able to take all of his medications.In the ER the patient had few seconds of V. tach and cardiology was consulted. Recommended the patient to be started from amiodarone and to be admitted for further management. FOR[facility]LY [facility] Social History household members: spouse Smoking Status: Former smoker alcohol intake: current Meds Home Medications and Allergies Home Medications Medication Instructions Recorded Confirmed Type clobetasol 0.05 % topical ointment 1 applic topical BID 12/31/22 12/31/22 History lisinopril 40 mg tablet 40 mg PO DAILY 12/31/22 12/31/22 History loratadine 10 mg tablet 10 mg PO DAILY 12/31/22 12/31/22 History polyethylene glycol 3350 17 17 g PO DAILY 12/31/22 12/31/22 History gram/dose oral powder simvastatin 40 mg tablet 40 mg PO ONCE PM 12/31/22 12/31/22 History valacyclovir 1 gram tablet 1,000 mg PO BID 12/31/22 12/31/22 History zolpidem 10 mg tablet 10 mg PO ONCE PM PRN Sleep 12/31/22 12/31/22 History Allergies Allergy/AdvReac Type Severity Reaction Status Date / Time No Known Drug Allergies Allergy Verified 12/31/22 17:15 Review of Systems Constitutional Constitutional: Reports as per HPI and Reports system reviewed and no additional complaints, except as documented Eyes Eyes: Reports as per HPI and Reports system reviewed and no additional complaints, except as documented ENT Ears, Nose, Mouth, and Throat: Yes as per HPI, Yes system reviewed and no additional complaints, except as documented, No dysphagia, No neck pain and No odynophagia Cardiovascular Cardiovascular: Reports system reviewed and no additional complaints, except as documented and Reports dyspnea on exertion Respiratory Respiratory: Reports system reviewed and no additional complaints, except as documented and Reports dyspnea on exertion Gastrointestinal Gastrointestinal: Denies as per HPI, Reports system reviewed and no additional complaints, except as documented, Denies abdominal pain, Denies belching, Denies melena, Denies bloating, Denies hematochezia, Denies change in bowel habits, D enies tenesmus, Denies change in stool character, Denies coffee ground emesis, Denies constipation, Denies cramping, Denies dysphagia, Denies excessive flatus, Denies heartburn, Denies loose stools, Denies nausea, Denies odynophagia, Denies vomiting, Denies hematemesis and Reports other Musculoskeletal Musculoskeletal: Denies as per HPI, Denies system reviewed and no additional complaints, except as documented, Denies abnormal gait, Denies back pain, Denies myalgias, Denies arthralgias, Denies joint swelling, Denies muscle cramps, Denies muscle weakness, Denies neck pain, Denies numbness and Denies radiating pain into limb Neurologic Neurologic: Denies abnormal gait, Denies confusion and Denies numbness Psychiatric Psychiatric: Denies as per HPI, Reports system reviewed and no additional complaints, except as documented, Denies abnormal sleep pattern, Denies anxiety, Denies change in appetite, Denies confusion, Denies depression and Denies auditory hallucinations Exam Vital Signs (past 8 hours): - 12/31/22 19:45 12/31/22 19:50 12/31/22 19:50 Temperature Pulse Rate 137 H 138 H Respiratory Rate 19 Blood Pressure 134/85 Pulse Oximetry 95 94 Oxygen Delivery Method Room Air Room Air Oxygen Flow Rate 12/31/22 19:55 12/31/22 20:00 12/31/22 20:01 Temperature Pulse Rate 139 H 152 H Respiratory Rate 18 35 H Blood Pressure 154/96 H Pulse Oximetry 96 94 Oxygen Delivery Method Room Air Oxygen Flow Rate 12/31/22 20:01 12/31/22 20:04 12/31/22 20:04 Temperature Pulse Rate 148 H 149 H Respiratory Rate 35 H 27 H Blood Pressure 132/97 H Pulse Oximetry 95 96 Oxygen Delivery Method Room Air Room Air Oxygen Flow Rate 12/31/22 20:05 12/31/22 20:10 12/31/22 20:10 Temperature Pulse Rate 145 H 141 H Respiratory Rate 22 Blood Pressure 124/85 Pulse Oximetry 95 94 Oxygen Delivery Method Oxygen Flow Rate 12/31/22 20:13 12/31/22 20:13 12/31/22 20:15 Temperature Pulse Rate 126 H 130 H Respiratory Rate 17 Blood Pressure 139/98 H Pulse Oximetry 93 95 Oxygen Delivery Method Room Air Oxygen Flow Rate 12/31/22 20:17 12/31/22 20:17 12/31/22 20:20 Temperature Pulse Rate 127 H 130 H Respiratory Rate 24 Blood Pressure 125/74 Pulse Oximetry 95 97 Oxygen Delivery Method Room Air Oxygen Flow Rate 12/31/22 20:21 12/31/22 20:21 12/31/22 20:24 Temperature Pulse Rate 127 H Respiratory Rate 20 Blood Pressure 109/85 103/86 Pulse Oximetry 96 Oxygen Delivery Method Oxygen Flow Rate 12/31/22 20:24 12/31/22 20:25 12/31/22 20:25 Temperature Pulse Rate 129 H 126 H Respiratory Rate 23 25 H Blood Pressure 105/86 Pulse Oximetry 94 94 Oxygen Delivery Method Room Air Room Air Oxygen Flow Rate 12/31/22 20:30 12/31/22 20:30 12/31/22 20:35 Temperature Pulse Rate 118 H Respiratory Rate 24 Blood Pressure 110/90 106/85 Pulse Oximetry 94 Oxygen Delivery Method Room Air Oxygen Flow Rate 12/31/22 20:35 12/31/22 20:40 12/31/22 20:45 Temperature Pulse Rate 117 H 119 H Respiratory Rate 25 H 24 Blood Pressure 113/78 Pulse Oximetry 96 95 Oxygen Delivery Method Oxygen Flow Rate 12/31/22 20:45 12/31/22 20:50 12/31/22 20:51 Temperature Pulse Rate 118 H 118 H 122 H Respiratory Rate 20 23 38 H Blood Pressure Pulse Oximetry 96 94 95 Oxygen Delivery Method Oxygen Flow Rate 12/31/22 20:51 12/31/22 20:55 12/31/22 20:56 Temperature Pulse Rate 117 H Respiratory Rate Blood Pressure 113/81 109/82 Pulse Oximetry 100 Oxygen Delivery Method Oxygen Flow Rate 12/31/22 20:56 12/31/22 21:00 12/31/22 21:00 Temperature Pulse Rate 121 H 119 H Respiratory Rate 24 19 Blood Pressure 122/76 Pulse Oximetry 97 94 Oxygen Delivery Method Oxygen Flow Rate 12/31/22 21:05 12/31/22 21:05 12/31/22 21:10 Temperature Pulse Rate 121 H Respiratory Rate 22 Blood Pressure 107/76 106/73 Pulse Oximetry 95 Oxygen Delivery Method Oxygen Flow Rate 12/31/22 21:10 12/31/22 21:15 12/31/22 21:15 Temperature Pulse Rate 120 H 118 H Respiratory Rate 20 24 Blood Pressure 115/73 Pulse Oximetry 94 94 Oxygen Delivery Method Oxygen Flow Rate 12/31/22 21:20 12/31/22 21:21 12/31/22 21:21 Temperature Pulse Rate 121 H 115 H Respiratory Rate 26 H 25 H Blood Pressure 111/78 Pulse Oximetry 96 95 Oxygen Delivery Method Oxygen Flow Rate 12/31/22 21:53 12/31/22 21:35 12/31/22 21:49 Temperature 97.1 F L 97.1 F L 97.1 F L Pulse Rate 122 H 122 H 122 H Respiratory Rate 17 17 17 Blood Pressure 119/89 119/89 119/89 Pulse Oximetry 96 96 96 Oxygen Delivery Method Oxygen Flow Rate 0 0 0 12/31/22 23:34 01/01/23 00:13 01/01/23 02:25 Temperature 96.9 F L Pulse Rate 122 H 90 103 H Respiratory Rate 23 18 Blood Pressure 119/89 121/92 H Pulse Oximetry 96 Oxygen Delivery Method Room Air Oxygen Flow Rate 0 01/01/23 00:05 Temperature Pulse Rate 103 H Respiratory Rate Blood Pressure 121/92 H Pulse Oximetry Oxygen Delivery Method Oxygen Flow Rate Oxygen Delivery Method Room Air Oxygen Flow Rate 0 Const General: cooperative, comfortable and well developed Orientation: alert and oriented x3 HENMT Head: normal to inspection and atraumatic Face and sinus: normal facial exam Mouth: oral mucosae normal and moist mucous membranes Throat: posterior oropharynx normal Eyes General: appearance normal, both eyes and all related structures Pupils: PERRL EOM: EOM intact bilaterally Neck Neck: normal visual inspection and full ROM Chest Chest: normal inspection of the chest Resp Effort & Inspection: normal respiratory effort and able to speak in complete sentences Auscultation: clear to auscultation bilaterally Cardio Palpation: normal PMI Rate: regular rate Rhythm: regular rhythm Heart Sounds: S1 normal and S2 normal GI Inspection: normal to inspection Palpation: soft and no hepatosplenomegaly Auscultation: normal bowel sounds Skin General: no rashes or lesions noted Neuro General: patient alert, patient awake, patient oriented x3 and no focal motor deficits Cognition: normal cognition Motor: muscle tone normal throughout Sensory Exam: no sensory deficits noted Extrem General: edema Psych Appearance: grossly normal Mental Status: mental status grossly normal Speech and Movement: speech and movement normal Objective Labs 12/31/22 16:54 12/31/22 16:54 Labs: Laboratory Results - last 24 hr 12/31/22 12/31/22 12/31/22 16:54 16:54 16:54 WBC 8.9 RBC 4.34 L Hgb 14.9 Hct 43.5 MCV 100.2 H MCH 34.4 H MCHC 34.3 RDW 13.6 Plt Count 318 Neut % (Auto) 62.6 Lymph % (Auto) 22.7 L [place] % (Auto) 11.4 Eos % (Auto) 2.2 Baso % (Auto) 1.1 Neut # (Auto) 5600 Lymph # (Auto) 2000 [place] # (Auto) 1000 H Eos # (Auto) 200 Baso # (Auto) 100 PT INR APTT Sodium Potassium Chloride Carbon Dioxide BUN Creatinine Estimated GFR BUN/Creatinine Ratio Glucose Lactate Cancelled Calcium Magnesium Total Bilirubin AST ALT Alkaline Phosphatase Total Creatine Kinase Troponin I Cancelled NT-Pro-B Natriuret Pep 3110 H Total Protein Albumin Globulin Albumin/Globulin Ratio Triglycerides Cholesterol LDL Cholesterol, Calc HDL Cholesterol Lipase Procalcitonin TSH SARS-CoV-2 (PCR) 12/31/22 12/31/22 12/31/22 16:54 16:54 18:55 WBC RBC Hgb Hct MCV MCH MCHC RDW Plt Count Neut % (Auto) Lymph % (Auto) [place] % (Auto) Eos % (Auto) Baso % (Auto) Neut # (Auto) Lymph # (Auto) [place] # (Auto) Eos # (Auto) Baso # (Auto) PT 13.9 H INR 1.2 APTT 34 Sodium 137 Potassium 4.0 Chloride 106 Carbon Dioxide 19 L BUN 21 H Creatinine 1.05 Estimated GFR > 60 BUN/Creatinine Ratio 20.0 Glucose 117 H Lactate Calcium 9.4 Magnesium 2.0 Total Bilirubin 1.4 H AST 64 H ALT 71 H Alkaline Phosphatase 82 Total Creatine Kinase 227 H Troponin I 0.394 H* NT-Pro-B Natriuret Pep Total Protein 6.8 Albumin 3.9 Globulin 2.9 Albumin/Globulin Ratio 1.3 Triglycerides Cholesterol LDL Cholesterol, Calc HDL Cholesterol Lipase 190 Procalcitonin TSH SARS-CoV-2 (PCR) Negative 12/31/22 12/31/22 12/31/22 19:44 23:38 23:38 WBC RBC Hgb Hct MCV MCH MCHC RDW Plt Count Neut % (Auto) Lymph % (Auto) [place] % (Auto) Eos % (Auto) Baso % (Auto) Neut # (Auto) Lymph # (Auto) [place] # (Auto) Eos # (Auto) Baso # (Auto) PT INR APTT Sodium Potassium Chloride Carbon Dioxide BUN Creatinine Estimated GFR BUN/Creatinine Ratio Glucose Lactate Calcium Magnesium Total Bilirubin AST ALT Alkaline Phosphatase Total Creatine Kinase Troponin I 0.386 H* 0.304 H* NT-Pro-B Natriuret Pep Total Protein Albumin Globulin Albumin/Globulin Ratio Triglycerides 67 Cholesterol 126 L LDL Cholesterol, Calc 74 HDL Cholesterol 39 L Lipase Procalcitonin TSH SARS-CoV-2 (PCR) 12/31/22 12/31/22 01/01/23 23:38 23:38 02:05 WBC RBC Hgb Hct MCV MCH MCHC RDW Plt Count Neut % (Auto) Lymph % (Auto) [place] % (Auto) Eos % (Auto) Baso % (Auto) Neut # (Auto) Lymph # (Auto) [place] # (Auto) Eos # (Auto) Baso # (Auto) PT INR APTT 73 H* D Sodium Potassium Chloride Carbon Dioxide BUN Creatinine Estimated GFR BUN/Creatinine Ratio Glucose Lactate Calcium Magnesium Total Bilirubin AST ALT Alkaline Phosphatase Total Creatine Kinase Troponin I NT-Pro-B Natriuret Pep Total Protein Albumin Globulin Albumin/Globulin Ratio Triglycerides Cholesterol LDL Cholesterol, Calc HDL Cholesterol Lipase Procalcitonin 0.11 TSH 1.69 SARS-CoV-2 (PCR) Assessment & Plan Assessment and plan (1) Atrial fibrillation with rapid ventricular response: Problem details: remote history of atrial fibrillation, not on any anticoagulation therapy Status: Acute Plan: -Admitted patient in med telemetry -start metoprolol 25 g twice a day -start amiodarone 400 mg twice a day -start Eliquis 15 mg twice a day -Monitor patient's electrolyte closely. Keep K > 4, Mg > 2 -Check patient's cardiac enzymes,TSH -Check echocardiogram (2) Congestive heart failure: Status: Acute Plan: -Monitor I and O; daily standing weight; -diuresis with Lasix as BP can tolerate. -check BNP and repeat in 48 hours; low sodium diet -Monitor effectiveness of diuresis. Monitor renal function. -keep potassium> 4 and magnesium> 2 -Telemetry monitoring -EKG, serial troponins, Echo -start BB -Supplemental O2 as needed, goal SpO2> 90% -consider cardiology consult (3) Elevated troponin: Problem details: most likely due to CHF exacerbation, demand supply mismatch, [place] type II Status: Acute Plan: -restart aspirin -Telemetry, serial cardiac enzymes -Start beta-blockers (4) Elevated LFTs: Problem details: Presented with LFT abnormality - AST 64, ALT 71 lipase 190. Most likely secondary to CHF exacerbation. Patient denies alcohol use. Status: Acute Plan: -abdominal ultrasound -sent acute hepatitis panel -hold statins for now (5) Hyperlipidemia: Status: Acute Plan: -hold statins for now due to elevated LFTs Time Spent With Patient Time with patient: 50 to 69 minutes with 50% spent counseling/coordinating care Quality VTE Deep Vein Thrombosis/Pulmonary Embolism Present on Admission: No MIPS - Admit I confirm the patient?s Advance Care Plan is present, Code status is documented, Surrogate decision maker is in patient?s record [If Yes, STOP here]: Yes MIPS - Meds 'Current medications' to include all prescriptions, [id number] products, herbals, cannabis/cannabidiol products, and vitamin/mineral/dietary (nutritional) supplements. I have utilized all available resources to obtain, update, or review the patient?s current medications. [If Yes, STOP here]: Yes
[2023-01-01 07:31] LABS: Hematocrit 44.6 % (41-53); Hemoglobin 14.7 g/dL (13.5-17.5); Platelet Count 262 X10^3/uL (150-400)
[2023-01-01 07:34] LABS: PTT Partial Thromboplastin Tim 38 SECONDS (26-36)
[2023-01-01 07:41] LABS: BUN Creatinine Ratio 19.4 (6-22); Blood Urea Nitrogen 21 mg/dL (9-20); Calcium 9.2 mg/dL (8.4-10.2); Carbon Dioxide 23 mmol/L (22-32); Chloride 104 mmol/L (98-107); Estimated Glomerular Filt Rate > 60 mL/min (>60); Glucose 106 mg/dL (80-110); HEMOLYSIS < 15 (0-50); Potassium 4.1 mmol/L (3.4-5.1); Sodium 137 mmol/L (137-145)
--- NOTE | 2023-01-01 08:00 | DI.ECHO.S_ITS ---
[place] [facility]---------+ [facility] +---------+ : : [address] : : : : [id number] : : : : Phone: [phone] Echocardiogram Report + + :Name: ADRIANA RAY Study Date: 01/01/2023 Height: 74 in : :[facility] ReadingLocation: Weight: 241 lb : : Gender: Male BSA: 2.4 m2 : :: 1945 Age: 77 yrs BP: 119/89 mmHg: :Reason For Study: CHF : :Ordering Physician: Gil, : :Mazin Performed By: Mariaa Moctezuma : :Referring: Mazin Cordero : + + Interpretation Summary Left ventricular ejection fraction is estimated to be 30 +/- 5%. The lateral, inferolateral and anterior wall all appear to be hypokinetic The right ventricle is mildly dilated. Right ventricular systolic function is moderately reduced. There is mild mitral regurgitation. There is mild aortic valve sclerosis. There is mild to moderate tricuspid regurgitation. The right ventricular systolic pressure is estimated to be at least 38 mmHg based on an estimated right atrial pressure of 15 mm Hg. Procedure: A two-dimensional transthoracic echocardiogram with color flow and Doppler was performed. The study quality was technically limited. There is no prior echocardiogram noted for this patient. The patient was in atrial fibrillation with rapid ventricular response during the exam with a heart rate exceeding 100 bpm. Left Ventricle: The left ventricle is normal in size. Left ventricular ejection fraction is estimated to be 30 +/- 5%. The lateral, inferolateral and anterior wall all appear to be hypokinetic. Diastolic function could not be accurately assessed due to atrial fibrillation. Right Ventricle: The right ventricle is mildly dilated. Right ventricular systolic function is moderately reduced. Atria: The left atrial size is normal. The right atrium is severely dilated. There is no Doppler evidence for an interatrial shunt. Mitral Valve: The mitral valve is normal. There is no mitral valve stenosis. There is mild mitral regurgitation. Aortic Valve: The aortic valve is trileaflet. The aortic valve opens well. There is mild aortic valve sclerosis. There is no aortic valve stenosis. No aortic regurgitation is present. Tricuspid Valve: The tricuspid valve leaflets are thin and pliable. There is no tricuspid stenosis. There is mild to moderate tricuspid regurgitation. The right ventricular systolic pressure is estimated to be at least 38 mmHg based on an estimated right atrial pressure of 15 mm Hg. Pulmonic Valve: The pulmonic valve is not well visualized. There is no pulmonic valvular stenosis. There is no pulmonic valvular regurgitation. Great Vessels: The aortic root is normal size. The ascending aorta is normal in size. The pulmonary artery is normal size. The IVC is dilated (diameter is greater than 2.1 cm) and it collapses less than 50% with a sniff. This suggests a high right atrial pressure of 15 mm Hg. Pericardium/ Pleura There is no pericardial effusion. There is no pleural effusion. MMode/2D Measurements & Calculations LVIDd: 4.6 cm LVOT diam: 1.8 cm LVIDs: 4.6 cm Ao root diam: 3.0 cm FS: -0.00 % asc Aorta Diam: 3.2 cm IVSd: 1.1 cm LVPWd: 1.2 cm LV olivera. diameter/BSA (cm/m^2): 2.0 LV sys. diameter/BSA (cm/m^2): 2.0 LA A2 area: 16.5 cm2 RA long axis: 7.1 cm LA A4 area: 25.2 cm2 RA area: 30.9 cm2 LA length (vol): 5.8 cm RA vol: 114.9 ml LA vol: 61.2 ml RA : 48.8 ml/m2 LA vol index: 26.0 ml/m2 IVC diam: 2.4 cm RVD1 (basal): 4.5 cm LVLs ap4: 7.3 cm LVLd ap2: 7.5 cm TAPSE_phl: 1.1 cm LVLs ap2: 7.4 cm Doppler Measurements & Calculations TR max herbert: 238.0 cm/sec TR max P.7 mmHg Reading Physician:01:08 PM
[2023-01-01] MEDS: APIXABAN 5 MG TABLET PO ×2 (08:09→21:11)
[2023-01-01] MEDS: METOPROLOL ER 25 MG TABLET PO (08:09)
[2023-01-01] MEDS: lisinopriL 20 MG TABLET 40 MG PO (08:10)
--- NOTE | 2023-01-01 08:14 | DI.US.S_ITS ---
PROCEDURE: US ABDOMEN LIMITED INDICATIONS: ABNORMAL LIVER FUNCTION TESTS TECHNIQUE: Real-time focused scanning was performed of the abdomen, with image documentation. COMPARISON: [facility], CT, CT ANGIO CHEST PE PROTOCOL, 12/31/2022, 18:00. FINDINGS: Scan quality is limited by bowel gas. The liver demonstrates enlarged size. The liver demonstrates generalized moderately increased echogenicity. This decreases ultrasound sensitivity for detection of hepatic masses. No findings of gallstones or sludge are seen. The gallbladder wall is not thickened, measuring 3 mm or less. No specific pericholecystic fluid is seen. The sonographic Faulkner sign is negative. There is no biliary dilatation, the common bile duct measures 6 mm. The pancreas is not well seen. IMPRESSION: Enlarged, fatty liver. The gallbladder demonstrates a normal sonographic appearance. No biliary dilatation is seen. Dictated by: Sukh Jaime M.D. on 01/01/2023 at 9:27 Approved by: Sukh Jaime M.D. on 01/01/2023 at 9:28
[2023-01-01] MEDS: METOPROLOL ER 50 MG TABLET PO (11:11)
[2023-01-01] MEDS: FUROSEMIDE 40 MG/4 ML VIAL IV (11:11)
--- NOTE | 2023-01-01 13:39 | P.PN_ITS ---
Subjective Subjective Interval history: 77 yo with HTN, HL presented with 5 day h/o LE edema, cough and dyspnea and was admitted due to acute CHF and afib. He has remote history of afib in the when he was drinking massive amounts of coffee. Pt notes improvement in cough and dyspnea. Hasn't had CP. Trop trending down. Remains tachy with HR 130's after 75 mg metoprolol this AM. ECHO EF 30-35% with lat, inf-lat and ant wall hypokinetic. Exam Vital Signs (past 8 hours): - 01/01/23 07:47 01/01/23 08:09 01/01/23 08:10 Temperature 96.8 F L Pulse Rate 141 H 141 H 141 H Respiratory Rate 17 Blood Pressure 116/84 116/84 116/84 Pulse Oximetry 95 Oxygen Flow Rate 0 01/01/23 09:17 01/01/23 11:11 01/01/23 12:20 Temperature Pulse Rate 137 H 130 H 130 H Respiratory Rate Blood Pressure 118/82 Pulse Oximetry Oxygen Flow Rate 01/01/23 12:00 Temperature 98.1 F Pulse Rate 119 H Respiratory Rate 19 Blood Pressure 110/86 Pulse Oximetry 95 Oxygen Flow Rate 0 Oxygen Delivery Method Room Air Oxygen Flow Rate 0 Narrative Exam Narrative: Gen: alert, NAD Lungs: diminished bases, scattered crackles wendy CV: irregularly irregular, tachy Ext: 1+ edema wendy Neuro: intact Objective Labs 01/01/23 07:10 01/01/23 07:10 Labs: Laboratory Results - last 24 hr 12/31/22 12/31/22 12/31/22 16:54 16:54 16:54 WBC 8.9 RBC 4.34 L Hgb 14.9 Hct 43.5 MCV 100.2 H MCH 34.4 H MCHC 34.3 RDW 13.6 Plt Count 318 Neut % (Auto) 62.6 Lymph % (Auto) 22.7 L [place] % (Auto) 11.4 Eos % (Auto) 2.2 Baso % (Auto) 1.1 Neut # (Auto) 5600 Lymph # (Auto) 2000 [place] # (Auto) 1000 H Eos # (Auto) 200 Baso # (Auto) 100 PT INR APTT Sodium Potassium Chloride Carbon Dioxide BUN Creatinine Estimated GFR BUN/Creatinine Ratio Glucose Lactate Cancelled Calcium Magnesium Total Bilirubin AST ALT Alkaline Phosphatase Total Creatine Kinase Troponin I Cancelled NT-Pro-B Natriuret Pep 3110 H Total Protein Albumin Globulin Albumin/Globulin Ratio Triglycerides Cholesterol LDL Cholesterol, Calc HDL Cholesterol Lipase Procalcitonin TSH SARS-CoV-2 (PCR) 12/31/22 12/31/22 12/31/22 16:54 16:54 18:55 WBC RBC Hgb Hct MCV MCH MCHC RDW Plt Count Neut % (Auto) Lymph % (Auto) [place] % (Auto) Eos % (Auto) Baso % (Auto) Neut # (Auto) Lymph # (Auto) [place] # (Auto) Eos # (Auto) Baso # (Auto) PT 13.9 H INR 1.2 APTT 34 Sodium 137 Potassium 4.0 Chloride 106 Carbon Dioxide 19 L BUN 21 H Creatinine 1.05 Estimated GFR > 60 BUN/Creatinine Ratio 20.0 Glucose 117 H Lactate Calcium 9.4 Magnesium 2.0 Total Bilirubin 1.4 H AST 64 H ALT 71 H Alkaline Phosphatase 82 Total Creatine Kinase 227 H Troponin I 0.394 H* NT-Pro-B Natriuret Pep Total Protein 6.8 Albumin 3.9 Globulin 2.9 Albumin/Globulin Ratio 1.3 Triglycerides Cholesterol LDL Cholesterol, Calc HDL Cholesterol Lipase 190 Procalcitonin TSH SARS-CoV-2 (PCR) Negative 12/31/22 12/31/22 12/31/22 19:44 23:38 23:38 WBC RBC Hgb Hct MCV MCH MCHC RDW Plt Count Neut % (Auto) Lymph % (Auto) [place] % (Auto) Eos % (Auto) Baso % (Auto) Neut # (Auto) Lymph # (Auto) [place] # (Auto) Eos # (Auto) Baso # (Auto) PT INR APTT Sodium Potassium Chloride Carbon Dioxide BUN Creatinine Estimated GFR BUN/Creatinine Ratio Glucose Lactate Calcium Magnesium Total Bilirubin AST ALT Alkaline Phosphatase Total Creatine Kinase Troponin I 0.386 H* 0.304 H* NT-Pro-B Natriuret Pep Total Protein Albumin Globulin Albumin/Globulin Ratio Triglycerides 67 Cholesterol 126 L LDL Cholesterol, Calc 74 HDL Cholesterol 39 L Lipase Procalcitonin TSH SARS-CoV-2 (PCR) 12/31/22 12/31/22 01/01/23 23:38 23:38 02:05 WBC RBC Hgb Hct MCV MCH MCHC RDW Plt Count Neut % (Auto) Lymph % (Auto) [place] % (Auto) Eos % (Auto) Baso % (Auto) Neut # (Auto) Lymph # (Auto) [place] # (Auto) Eos # (Auto) Baso # (Auto) PT INR APTT 73 H* D Sodium Potassium Chloride Carbon Dioxide BUN Creatinine Estimated GFR BUN/Creatinine Ratio Glucose Lactate Calcium Magnesium Total Bilirubin AST ALT Alkaline Phosphatase Total Creatine Kinase Troponin I NT-Pro-B Natriuret Pep Total Protein Albumin Globulin Albumin/Globulin Ratio Triglycerides Cholesterol LDL Cholesterol, Calc HDL Cholesterol Lipase Procalcitonin 0.11 TSH 1.69 SARS-CoV-2 (PCR) 01/01/23 01/01/23 01/01/23 07:10 07:10 07:10 WBC RBC Hgb 14.7 Hct 44.6 MCV MCH MCHC RDW Plt Count 262 Neut % (Auto) Lymph % (Auto) [place] % (Auto) Eos % (Auto) Baso % (Auto) Neut # (Auto) Lymph # (Auto) [place] # (Auto) Eos # (Auto) Baso # (Auto) PT INR APTT Sodium 137 Potassium 4.1 Chloride 104 Carbon Dioxide 23 BUN 21 H Creatinine 1.08 Estimated GFR > 60 BUN/Creatinine Ratio 19.4 Glucose 106 Lactate Calcium 9.2 Magnesium 2.0 Total Bilirubin AST ALT Alkaline Phosphatase Total Creatine Kinase Troponin I 0.230 H* NT-Pro-B Natriuret Pep Total Protein Albumin Globulin Albumin/Globulin Ratio Triglycerides Cholesterol LDL Cholesterol, Calc HDL Cholesterol Lipase Procalcitonin TSH SARS-CoV-2 (PCR) 01/01/23 07:10 WBC RBC Hgb Hct MCV MCH MCHC RDW Plt Count Neut % (Auto) Lymph % (Auto) [place] % (Auto) Eos % (Auto) Baso % (Auto) Neut # (Auto) Lymph # (Auto) [place] # (Auto) Eos # (Auto) Baso # (Auto) PT INR APTT 38 H D Sodium Potassium Chloride Carbon Dioxide BUN Creatinine Estimated GFR BUN/Creatinine Ratio Glucose Lactate Calcium Magnesium Total Bilirubin AST ALT Alkaline Phosphatase Total Creatine Kinase Troponin I NT-Pro-B Natriuret Pep Total Protein Albumin Globulin Albumin/Globulin Ratio Triglycerides Cholesterol LDL Cholesterol, Calc HDL Cholesterol Lipase Procalcitonin TSH SARS-CoV-2 (PCR) [facility] Social History household members: spouse Smoking Status: Former smoker alcohol intake: current Assessment & Plan Assessment & Plan narrative: 1. Acute systolic HF -diuresing with IV lasix -ECHO EF 30-35%, with lat, inf-lat and ant hypokinesis, dec RV fxn mild MR/TR -cont IV Lasix 40 bid -cont metoprolol for rate control (see afib) -cont lisinopril 40 mg qd (home dose) -left message with cardiology for phone discussion -monitor BUN, Cr, K+ 2. Acute afib -started on oral metoprolol ER, inc dose to 50 bid -started apixaban 5 mg bid -d/w cardiology re rate control 3. Elev troponin -likely leak secondary to CHF -downtrending -cont pt's statin (LDL 74) 4. Mild elev LFTs -likely secondary to hepatic congestion -abd US unremarkable Quality VTE Deep Vein Thrombosis/Pulmonary Embolism Present on Admission: No
--- NOTE | 2023-01-01 14:49 | CM.DANOTE ---
Initial DCP Assessment Note Pt is a 77 yo male, resident of [place] , arrives with SOB, admitted INPT for management of acute systolic HF, acute afib, elev trop PCP: Unknown Payer: [employer] Reviewed chart, met w/patient to introduce self and role. Patient in good spirits admits however that staying in bed is difficult for him. Patient lives with his spouse of 50+ years whom has mild dementia, gets around with a walker. 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 Patient does not mention caregivers to assist and this ROVING CARRIER did not bring up the topic No barriers identified at this time to patient's safe discharge home w/family traveling now in order to assist; close outpatient f/u will be recommended. CHINA Mccord Discharge Planning/Care Management CM Discharge Assessment Start: 01/01/23 14:46 Freq: Status: Active Protocol: Document 01/01/23 14:47 DELFIN (Rec: 01/01/23 14:49 DELFIN [id number]) Discharge Planning Assessment Assigned Patient Service Specialist CHINA Barfield DPOA/Assigned Designee Name Kari Paula, spouse (has mild dementia) Contact Information [phone] Advance Directives? No History Provided By Patient,Medical Record Prior Living Arrangements House Household Members spouse Type of transporation used prior to Drives own vehicle admit Comment Cares for spouse who has short term memory loss Independent with ADL's Yes Is patient alert and oriented? Yes Caregiver for Another Yes: spouse who has mild dementia Comment Home Barriers to Discharge No Comment Home w/family upon discharge Discharge Plan Home Transportation Arrangement Family Referrals Initiated None needed
[2023-01-01] MEDS: METOPROLOL IR 50 MG TABLET PO (15:07)
--- NOTE | 2023-01-01 16:20 | PT.IIE ---
Current Diagnoses Hyperlipidemia, unspecified (12/31/22) Unspecified atrial fibrillation (12/31/22) Heart failure, unspecified (12/31/22) Other specified abnormalities of plasma proteins (12/31/22) Other specified abnormal findings of blood chemistry (12/31/22) Physical Therapy Inpatient Evaluation/Re-Eval M1 PT/OT-IP Prior Functional Status Start: 01/01/23 15:26 Freq: NEEDED Status: Active Protocol: Document 01/01/23 15:50 MB (Rec: 01/01/23 16:20 MB [id number]) Medical Review Prior Functional Status Medical History Reviewed Yes Diet/Fluid Consistency Regular Communication WNLs Mobility and Gait I Activities of Daily Living and IADL's I Prior Functional Level (Other details) 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 He does all household tasks including cooking, laundry, driving and errands. His daughter is flying in to assist while he is in the hospital. Pt denies falls. Social History Household Members spouse Living Arrangements House Number of Floors (Floors) 3 or More Floors Number of Stairs To Enter/Railing? 2 flights of steps in the house with one set with right rail ascend and one set with two rails, two steps to enter without rail Home Environment Standard Height Toilet,Walk in Shower Home Equipment Front Wheel Walker,Four Wheel Walker,Grab Bars Near Toilet, Grab Bars In Shower Employment Status Retired Additional Social History Comment Pt is a retired [employer] M2 PT-IP Current Condition Start: 01/01/23 15:26 Freq: NEEDED Status: Active Protocol: Document 01/01/23 15:50 MB (Rec: 01/01/23 16:20 MB [id number]) Physical Therapy Current Condition Current Condition Evaluation Date 01/01/23 Treatment Diagnosis CHF, a-fib, LE edema M3 PT-IP Subjective Start: 01/01/23 15:26 Freq: NEEDED Status: Active Protocol: Document 01/01/23 15:50 MB (Rec: 01/01/23 16:20 MB [id number]) Subjective Physical Therapy Visit Type Type Initial Evaluation Visit Start Time 15:50 Visit Stop Time 16:05 Total Visit Minutes 15 Number of CRABBER Visits 0 Physical Therapy Visit Comments Patient Comments Crappy. When PT asks pt how he is feeling Patient Goals To go home Therapy Pain Assessment Pain When Pain Assessed At Rest Pain Present Pain Present Denied Pain M4 PT-IP Mobility and Gait Start: 01/01/23 15:26 Freq: NEEDED Status: Active Protocol: Document 01/01/23 15:50 MB (Rec: 01/01/23 16:20 MB [id number]) PT-Bed Mobility Assessment Supine to Sit Supine to Sit Contact Guard Assistance,1 Person Assistance,Bedrails Scooting Scooting to Edge of Bed Standby Assistance Scooting Up and Down in Bed Standby Assistance PT-Transfer Assessment Sit to and From Stand Sit to and from Stand Contact Guard Assistance,1 Person Assistance,Use of Upper Extremities Equipment Transfer Assistive Device Gait Belt Orthotic/Prosthetic Devices or Brace: No Gait Assessment Gait Gait Assistance Required: Standby Assistance,1 Person Assist Distance (Feet) 100 Assistive Devices Assistive Device Gait Belt Factors Limiting Gait Function Factors Limiting Gait Function Decreased Activity Tolerance, Poor Balance Comments Gait Comments Pt reports some reduction in visual field (sounds like light-headedness tunnel vision ) after 100' gait and returned to EOB. His livia is slow. PT-Balance Assessment Sitting Balance and Reactions Static Sitting Balance Ability Good Dynamic Sitting Balance Ability Good Standing Balance and Reactions Static Standing Balance Ability Good Dynamic Standing Balance Ability Good Device Used None M6 PT-IP Treatment Start: 01/01/23 15:26 Freq: NEEDED Status: Active Protocol: Document 01/01/23 15:50 MB (Rec: 01/01/23 16:20 MB [id number]) Physical Therapy Treatment Education Education Provided Safety Other Treatments Other Treatment Performed PT checks orthostatics and pt presents with the following BP and HR in LUE: supine 110/86, 93; standing 115/87, 100; standing 1' 111/91, 128 M7 PT-IP Assessment and Plan Start: 01/01/23 15:26 Freq: NEEDED Status: Active Protocol: Document 01/01/23 15:50 MB (Rec: 01/01/23 16:20 MB [id number]) PT Summary Assessment and Plan Potential Rehabilitation Potential Good Status of Condition at Evaluation Evolving Summary Impairments Balance,Bed Mobility,Transfers ,Gait,Activity Tolerance Progress Towards Goals Progressing Toward Goals Assessment Summary Pt is a 77 y/o male presenting with history of a-fib, CHF with EF 30+/-5%, and recent LE edema. He is normally I. He was not under automation specialist care prior to this admission. 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 Orthostatic assessment is negative today. Pt does get symptomatic at the end of 100 feet gait. He is not dyspneic but has some light-headedness- type symptoms. He has mild LE edema today. He will benefit from PT to maximize I to prepare for d/c home. Goals Bed Mobility Goal Independent Transfer Goal Independent Gait Goal Independent Gait Distance 200 Other Goals Ascend and descend 12 steps with rail and 2 steps without rail to allow safe home mobility with mod I to I. Days to Meet Goals 5 Frequency of Treatment Frequency Of Treatment Once a Day Treatment Plan Physical Therapy Treatment Plan Bed Mobility Training,Transfer Training,Gait Training, Therapeutic Exercise,Balance Retraining,Discharge Planning, Neuromuscular Re-ed Weight Bearing Status Weight Bearing Status Weight Bear as Tolerated Recommendations To Nursing Amount of Assist Needed Standby Assistance Discharge Recommendations PT Discharge Recommendations Home Other Discharge Recommendations If appropriate, the medical center rehab could be helpful in the future for a relatively active 77 y/ o male who is the caregiver for his Transportation Needs at Discharge Private Vehicle
[2023-01-01] MEDS: DIGOXIN 500 MCG/2 ML AMPUL IV (18:07)
[2023-01-01] MEDS: ONDANSETRON 4 MG/2 ML INJ IV (21:10)
[2023-01-01] MEDS: METOPROLOL ER 50 MG TABLET 100 MG PO (21:11)
[2023-01-01] MEDS: SENNOSIDES 8.6 MG TABLET 17.2 MG PO (21:12)
[2023-01-01] MEDS: ATORVASTATIN 20 MG TABLET 40 MG PO (21:12)
[2023-01-02] VITALS (13 sets, daily range): BP systolic 99–138; BP diastolic 66–97; PULSE 75–106; RESP 16–18; TEMP 35.7–36.6; O2SAT 92–95
[2023-01-02 00:23] LABS: x Labcorp Estim. Avg Glu (eAG) 111 mg/dL (.); x Labcorp Hemoglobin A1c 5.5 % (4.8-5.6)
[2023-01-02] MEDS: DIGOXIN 500 MCG/2 ML AMPUL 250 MCG IV ×2 (00:37→06:22)
[2023-01-02] MEDS: ZOLPIDEM 5 MG TABLET 10 MG PO ×2 (00:39→22:16)
[2023-01-02] MEDS: FUROSEMIDE 40 MG/4 ML VIAL IV (00:39)
[2023-01-02 04:10] LABS: HBsAg Screen Negative (Negative); Hepatitis A Antibody IgM Negative (Negative); Hepatitis B Core Antibody IgM Negative (Negative); Hepatitis C Antibody Non Reactive (Non Reactive)
[2023-01-02 06:13] LABS: Add Manual Diff / Slide Review NO; Basophils Absolute Auto 100 /uL (0-100); Eosinophils Absolute Auto 200 /uL (0-450); Eosinophils Percent Auto 2.7 % (2-4); Hematocrit 44.4 % (41-53); Hemoglobin 15.1 g/dL (13.5-17.5); Lymphocytes Absolute Auto 1800 /uL (1100-4500); Lymphocytes Percent Auto 19.7 % (25-40); Mean Corpuscular HGB Conc 33.9 % (30-36); Mean Corpuscular Hemoglobin 34.2 PG (26-34); Mean Corpuscular Volume 100.9 fL (80-100); Monocytes Absolute Auto 800 /uL (0-900); Monocytes Percent Auto 8.9 % (3-14); Neutrophils Absolute Auto 6200 /uL (1500-7000); Neutrophils Percent Auto 67.7 % (50-75); Platelet Count 307 X10^3/uL (150-400); White Blood Cell Count 9.2 X10^3/uL (4.5-11.0)
[2023-01-02 06:18] LABS: Alanine Aminotransferase 66 IU/L (<50); Albumin 3.8 g/dL (3.5-5.0); Albumin Globulin Ratio 1.4 (1.0-2.8); Alkaline Phosphatase 69 U/L (38-126); Aspartate Aminotransferase 56 IU/L (17-59); Bilirubin Total 1.2 mg/dL (0.2-1.3); Blood Urea Nitrogen 24 mg/dL (9-20); Calcium 8.8 mg/dL (8.4-10.2); Carbon Dioxide 34 mmol/L (22-32); Chloride 99 mmol/L (98-107); Estimated Glomerular Filt Rate 58 mL/min (>60); Globulin 2.8 g/dL (1.7-4.1); Glucose 102 mg/dL (80-110); HEMOLYSIS < 15 (0-50); Potassium 3.8 mmol/L (3.4-5.1); Sodium 139 mmol/L (137-145); Total Protein 6.6 g/dL (6.3-8.2)
[2023-01-02] MEDS: SPIRONOLACTONE 25 MG TABLET 12.5 MG PO (08:31)
[2023-01-02] MEDS: FUROSEMIDE 40 MG TABLET PO (08:31)
[2023-01-02] MEDS: APIXABAN 5 MG TABLET PO ×2 (08:31→20:50)
[2023-01-02] MEDS: POTASSIUM CHLORIDE 20 MEQ TAB 40 MEQ PO (08:31)
[2023-01-02] MEDS: METOPROLOL ER 50 MG TABLET 100 MG PO ×2 (08:35→20:49)
[2023-01-02] MEDS: lisinopriL 20 MG TABLET 40 MG PO (08:35)
--- NOTE | 2023-01-02 10:40 | PT.IPTN ---
Current Diagnoses Hyperlipidemia, unspecified (12/31/22) Unspecified atrial fibrillation (12/31/22) Heart failure, unspecified (12/31/22) Other specified abnormalities of plasma proteins (12/31/22) Other specified abnormal findings of blood chemistry (12/31/22) Physical Therapy Treatment Note M2 PT-IP Current Condition Start: 01/01/23 15:26 Freq: NEEDED Status: Active Protocol: Document 01/01/23 15:50 MB (Rec: 01/01/23 16:20 MB [id number]) Physical Therapy Current Condition Current Condition Evaluation Date 01/01/23 Treatment Diagnosis CHF, a-fib, LE edema M3 PT-IP Subjective Start: 01/01/23 15:26 Freq: NEEDED Status: Active Protocol: Document 01/02/23 10:53 TS (Rec: 01/02/23 11:01 TS [id number]) Subjective Physical Therapy Visit Type Type Treatment Note Visit Start Time 10:40 Visit Stop Time 10:51 Total Visit Minutes 11 Number of SECURITY CONSULTANT Visits 1 Physical Therapy Visit Comments Patient Comments Pt agreeable to PT. Patient Goals To go home M4 PT-IP Mobility and Gait Start: 01/01/23 15:26 Freq: NEEDED Status: Active Protocol: Document 01/02/23 10:53 TS (Rec: 01/02/23 11:01 TS [id number]) PT-Bed Mobility Assessment Supine to Sit Supine to Sit Standby Assistance Scooting Scooting to Edge of Bed Standby Assistance PT-Transfer Assessment Sit to and From Stand Sit to and from Stand Standby Assistance,Use of Upper Extremities Equipment Transfer Assistive Device Gait Belt Orthotic/Prosthetic Devices or Brace: No Comments Mobility Comments Pt performed all bed mobility SBA with BUE support. He performed sit to stand with no AD, has some swaying in standing but no buckling or LOB. He ambulated ~500'SBA with no AD, had some SOB, denied any dizziness, has no LOB. PT performed stairs x12 SBa with BUE batista, alternates between step to step and step over step. Pt back to chair in room, call light nearby, RN notified. Gait Assessment Gait Gait Assistance Required: Standby Assistance,1 Person Assist Distance (Feet) 500 Assistive Devices Assistive Device Gait Belt Orthotic/Prosthetic Devices or Brace: No Factors Limiting Gait Function Factors Limiting Gait Function Decreased Activity Tolerance, Poor Balance Comments Gait Comments See mobility comments. Stair Climbing Assessment Evaluation Level of Assist On Stairs Standby Assistance Devices Stair Climbing Assistive Devices Left Railing,Right Railing Technique/Endurance Stair Climbing Direction Ascend and Descend Stair Climbing Technique Step Over Step,Step to Step Number of Steps Climbed 12 Comments Stair Climbing Comments See mobility comments. PT-Balance Assessment Sitting Balance and Reactions Static Sitting Balance Ability Normal Dynamic Sitting Balance Ability Good Standing Balance and Reactions Static Standing Balance Ability Good Dynamic Standing Balance Ability Good Device Used None M6 PT-IP Treatment Start: 01/01/23 15:26 Freq: NEEDED Status: Active Protocol: Document 01/02/23 10:53 TS (Rec: 01/02/23 11:01 TS [id number]) Physical Therapy Treatment Education Education Provided Safety M7 PT-IP Assessment and Plan Start: 01/01/23 15:26 Freq: NEEDED Status: Active Protocol: Document 01/02/23 10:53 TS (Rec: 01/02/23 11:01 TS [id number]) PT Summary Assessment and Plan Potential Rehabilitation Potential Good Summary Impairments Balance,Bed Mobility,Transfers ,Gait,Activity Tolerance Progress Towards Goals Progressing Toward Goals Assessment Summary Pt is progressing well with his mobility. He is SBA for all bed mobility and sit to stand with no AD. He progressed gait to ~500' without AD, has some SOB when talking while walking, good balance with no LOB. Edema is still present but he reports it is improving. PT is recommending Home when medically stable. Goals Bed Mobility Goal Independent Transfer Goal Independent Gait Goal Independent Gait Distance 200 Other Goals Ascend and descend 12 steps with rail and 2 steps without rail to allow safe home mobility with mod I to I. Days to Meet Goals 5 Frequency of Treatment Frequency Of Treatment Once a Day Treatment Plan Physical Therapy Treatment Plan Bed Mobility Training,Transfer Training,Gait Training, Therapeutic Exercise,Balance Retraining,Discharge Planning, Neuromuscular Re-ed Weight Bearing Status Weight Bearing Status Weight Bear as Tolerated Recommendations To Nursing Amount of Assist Needed Standby Assistance Discharge Recommendations PT Discharge Recommendations Home Other Discharge Recommendations If appropriate, [facility] rehab could be helpful in the future for a relatively active 77 y/ o male who is the caregiver for his Transportation Needs at Discharge Private Vehicle
--- NOTE | 2023-01-02 13:51 | P.PN_ITS ---
Subjective Subjective Date Patient Seen: 01/02/23 Interval history: 77 yo with HTN, HL presented with 5 day h/o LE edema, cough and dyspnea and was admitted due to acute CHF and afib. He has remote history of afib in the when he was drinking massive amounts of coffee. Pt notesd improvement in dyspnea and not coughing anymore. Afib rate control much better since loaded with IV digoxin yesterday in addition to po metoprolol. Noted slight bump in Cr today and slightly low BP and stopped IV Lasix though he is still a little edematous in his legs. Exam Vital Signs (past 8 hours): - 01/02/23 06:22 01/02/23 08:35 01/02/23 08:35 Temperature Pulse Rate 84 85 85 Respiratory Rate Blood Pressure 123/82 99/66 99/66 Pulse Oximetry Oxygen Flow Rate 01/02/23 08:36 01/02/23 09:50 01/02/23 12:56 Temperature 97.6 F 96.2 F L Pulse Rate 85 75 106 H Respiratory Rate 16 18 Blood Pressure 99/66 122/82 Pulse Oximetry 94 92 Oxygen Flow Rate 0 0 Oxygen Delivery Method Room Air Oxygen Flow Rate 0 Narrative Exam Narrative: Gen: alert, comfortable Lungs: clear CV: irregular, rate controlled Ext: tr lt, 1 + rt LE edema Neuro: intact Objective Labs 01/02/23 05:30 01/02/23 05:30 Labs: Laboratory Results - last 24 hr 12/31/22 01/01/23 01/02/23 07:10 23:38 05:30 WBC 9.2 RBC 4.40 L Hgb 15.1 Hct 44.4 MCV 100.9 H MCH 34.2 H MCHC 33.9 RDW 14.0 Plt Count 307 Neut % (Auto) 67.7 Lymph % (Auto) 19.7 L [place] % (Auto) 8.9 Eos % (Auto) 2.7 Baso % (Auto) 1.0 Neut # (Auto) 6200 Lymph # (Auto) 1800 [place] # (Auto) 800 Eos # (Auto) 200 Baso # (Auto) 100 Sodium Potassium Chloride Carbon Dioxide BUN Creatinine Estimated GFR BUN/Creatinine Ratio Glucose Hgb A1c (Ref Lab) 5.5 Estim Average Glucose 111 Calcium Magnesium Total Bilirubin AST ALT Alkaline Phosphatase Total Protein Albumin Globulin Albumin/Globulin Ratio Hepatitis A IgM Ab Negative Hep Bs Antigen Negative Hep B Core IgM Ab Negative Hepatitis C Antibody Non reactive Hep C Ab Signal/Cutoff Comment 01/02/23 01/02/23 05:30 05:30 WBC RBC Hgb Hct MCV MCH MCHC RDW Plt Count Neut % (Auto) Lymph % (Auto) [place] % (Auto) Eos % (Auto) Baso % (Auto) Neut # (Auto) Lymph # (Auto) [place] # (Auto) Eos # (Auto) Baso # (Auto) Sodium 139 Potassium 3.8 Chloride 99 Carbon Dioxide 34 H BUN 24 H Creatinine 1.26 H Estimated GFR 58 L BUN/Creatinine Ratio 19.0 Glucose 102 Hgb A1c (Ref Lab) Estim Average Glucose Calcium 8.8 Magnesium 2.0 Total Bilirubin 1.2 AST 56 ALT 66 H Alkaline Phosphatase 69 Total Protein 6.6 Albumin 3.8 Globulin 2.8 Albumin/Globulin Ratio 1.4 Hepatitis A IgM Ab Hep Bs Antigen Hep B Core IgM Ab Hepatitis C Antibody Hep C Ab Signal/Cutoff PFS Social History household members: spouse Smoking Status: Former smoker alcohol intake: current Assessment & Plan Assessment & Plan narrative: 1. Acute systolic HF -ddx ischemic due to CAD, tachy mediated due to undx'd afib, other -diuresed with IV lasix, switched to po lasix 40 mg qd on 01/02 due to bump in Cr -ECHO EF 30-35%, with lat, inf-lat and ant hypokinesis, dec RV fxn mild MR/TR -cont metoprolol ER 100 mg bid (see afib) -cont lisinopril 40 mg qd (home dose) -added spironolactone 12.5 mg qd -reviewed with cardiology Dr Bunn on 01/01 -monitor BUN, Cr, K+ -outpatient cards consult 2. Acute afib with RVR -cont metoprolol ER 100 mg bid -loaded with digoxin IV, start oral digoxin 0.25 mg qd on 01/02 pm -started apixaban 5 mg bid -cont tele 3. Elev troponin -likely leak secondary to CHF -downtrending -cont pt's statin (LDL 74) 4. Mild elev LFTs -likely secondary to hepatic congestion -abd US unremarkable Pt should be able to discharge colt Wednesday if stable. 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 Quality VTE Deep Vein Thrombosis/Pulmonary Embolism Present on Admission: No
[2023-01-02] MEDS: DIGOXIN 0.125 MG TABLET 0.25 MG PO (17:49)
[2023-01-02] MEDS: ATORVASTATIN 20 MG TABLET 40 MG PO (20:49)
[2023-01-03 00:05] VITALS: BP 118/82; PULSE 65; RESP 16; TEMP 35.7; O2SAT 96
[2023-01-03 06:30] LABS: Blood Urea Nitrogen 25 mg/dL (9-20); Calcium 8.9 mg/dL (8.4-10.2); Carbon Dioxide 31 mmol/L (22-32); Chloride 100 mmol/L (98-107); Estimated Glomerular Filt Rate > 60 mL/min (>60); Glucose 106 mg/dL (80-110); HEMOLYSIS < 15 (0-50); Potassium 4.3 mmol/L (3.4-5.1); Sodium 136 mmol/L (137-145)
[2023-01-03 06:37] VITALS: BP 121/90; PULSE 73; RESP 18; TEMP 36; O2SAT 96
--- NOTE | 2023-01-03 07:32 | P.DS_ITS ---
History of Present Illness History of Present Illness Date Patient Seen: 01/03/23 Chief complaint: SOB Narrative: Patient is a 77-year-old male With history of atrial fibrillation, hypertension, hyperlipidemia presents to the ER with shortness of breath with dry cough and bilateral lower extremities edema in the last several days getting progressively worse. The symptoms got worse after he had a long flight 4 days ago for more than 10 hours.?Denies any chest pain, fever, nausea, vomiting, abdominal pain, there are dysuria.? He also states he is had a blood clot in his legs in the [facility] but that was many years ago as well.? He has been able to take all of his medications.In the ER the patient had few seconds of V. tach and cardiology was consulted. Recommended the patient to be started from amiodarone and to be admitted for further management. Discharge Providers Provider Date of admission: 12/31/22 20:41 Discharge Date: 01/03/23 Primary care physician: Dr. Pito Alfredo Consults: 01/01/23 10:42 Consult to Physical Therapy Evaluate & Treat Comment: Physician Instructions: Evaluate and Treat Discharge provider: Daylin Hong MD Summary Hospital Course Hospital Course: 1. Acute systolic HF -ddx ischemic due to CAD, tachy mediated due to undx'd afib -diuresed with IV lasix, switched to po lasix 40 mg qd on 01/02 due to bump in Cr -ECHO EF 30-35%, with lat, inf-lat and ant hypokinesis, dec RV fxn mild MR/TR -cont metoprolol ER 100 mg bid (see afib) -cont lisinopril 40 mg qd (home dose) -added spironolactone 12.5 mg qd -reviewed with cardiology Dr Bunn on 01/01 -outpatient cards consult 2. Acute afib with RVR -cont metoprolol ER 100 mg bid -loaded with digoxin IV, started oral digoxin 0.25 mg qd on 01/02 pm -started apixaban 5 mg bid 3. Elev troponin -likely leak secondary to CHF -downtrending -cont pt's statin (LDL 74) 4. Mild elev LFTs -likely secondary to hepatic congestion -abd US unremarkable He should see PCP - Dr. Pito Alfredo within 1 week and have labs done to monitor renal funtion, lytes and dig level. Status at Discharge Cognitive/behavioral status at discharge: at baseline, oriented Functional status at discharge: independent ambulation Overall status at discharge: patient is back to baseline Exam Vital Signs (past 8 hours): - 01/03/23 00:05 01/03/23 06:37 Temperature 96.2 F L 96.8 F L Pulse Rate 65 73 Respiratory Rate 16 18 Blood Pressure 118/82 121/90 Pulse Oximetry 96 96 Oxygen Flow Rate 0 0 Oxygen Delivery Method Room Air Oxygen Flow Rate 0 Narrative Exam Narrative: He is alert and oriented x3. No apparent distress. Walking around the room, anxious to go home. Heart is regular rate and rhythm without murmur Lungs are clear to auscultation bilaterally Extremities have no ankle edema. Objective Labs 01/02/23 05:30 01/03/23 05:50 Labs: Laboratory Results - last 24 hr 01/03/23 05:50 Sodium 136 L Potassium 4.3 Chloride 100 Carbon Dioxide 31 BUN 25 H Creatinine 1.04 Estimated GFR > 60 BUN/Creatinine Ratio 24.0 H Glucose 106 Calcium 8.9 PFSH Medical History (Updated 01/03/23 @ 16:04 by Daylin Hong MD) Afib CAD (coronary artery disease) Systolic heart failure Social History household members: spouse Smoking Status: Former smoker alcohol intake: current Discharge Assessment & Plan Assessment and Plan Plan of Treatment: See plan above Discharge Plan Discharge Plan Patient Disposition: Home Provider Discharge Comment: Follow up with Dr. Alfredo in 1-2 weeks. Discharge orders & Medications Prescriptions: New Eliquis 5 mg Tablet 5 mg PO BID Qty: 60 0RF furosemide 40 mg Tablet 40 mg PO DAILY Qty: 30 0RF metoprolol succinate 50 mg Tablet Extended Release 24 Hr 100 mg PO BID Qty: 60 0RF spironolactone 25 mg Tablet 12.5 mg PO DAILY Qty: 30 0RF digoxin 125 mcg (0.125 mg) Tablet 0.25 mg PO DAILY@1700 Qty: 30 0RF Continued valacyclovir 1 gram tablet 1,000 mg PO BID simvastatin 40 mg tablet 40 mg PO ONCE PM clobetasol 0.05 % ointment 1 applic topical BID polyethylene glycol 3350 17 gram/dose powder 17 g PO DAILY zolpidem 10 mg tablet 10 mg PO ONCE PM PRN (Reason: Sleep) lisinopril 40 mg tablet 40 mg PO DAILY loratadine 10 mg tablet 10 mg PO DAILY Diet/Activity/Treatments Diet: Low-sodium and Low-cholesterol Visit Report/Discharge Packet Instructions: DI for Ventricular Tachycardia, Digoxin, Metoprolol, Apixaban, Spironolactone (By mouth) Stand Alone Forms: Patient Portal/API, Stroke Signs & Symptoms Discharges patient from system. Discharge Date/Time: 01/03/23 12:20 Quality VTE Deep Vein Thrombosis/Pulmonary Embolism Present on Admission: No
[2023-01-03 08:10] VITALS: BP 134/84; PULSE 64
[2023-01-03] MEDS: METOPROLOL ER 50 MG TABLET 100 MG PO (08:10)
[2023-01-03] MEDS: APIXABAN 5 MG TABLET PO (08:10)
[2023-01-03] MEDS: SPIRONOLACTONE 25 MG TABLET 12.5 MG PO (08:10)
[2023-01-03] MEDS: lisinopriL 20 MG TABLET 40 MG PO (08:10)
[2023-01-03] MEDS: FUROSEMIDE 40 MG TABLET PO (08:10)
[2023-01-03 08:35] VITALS: RESP 18; TEMP 36; O2SAT 93
[2023-01-03 09:27] VITALS: PULSE 88
== END 2023-01-03 12:20 | disposition home or self-care (01) | DRG 291 ==
LOC: ED 20:41 → AC 20:41
PROVIDERS: Emergency Medicine; Internal Medicine; Admitting Provider Internal Medicine; Emergency Provider Emergency Medicine; Referring Provider Emergency Medicine; Visit Provider Internal Medicine
DX: I11.0 Hypertensive heart disease with heart failure (principal); I50.21 Acute systolic (congestive) heart failure; I48.91 Unspecified atrial fibrillation; R79.89 Other specified abnormal findings of blood chemistry; I25.10 Atherosclerotic heart disease of native coronary artery without angina pectoris; Z87.891 Personal history of nicotine dependence
CPT/HCPCS: 36415; 71045; 71275; 76705; 80048; 80053; 80061; 80074; 82550; 83036; 83690; 83735; 83880; 84145; 84443; 84484; 85014; 85018; 85025; 85049; 85610; 85730; 87635; 93005; 93010; 93306; 93970; 96365; 96366; 96375; 96376; 97116; 97161; 99284; 99285; C9803; J1160; J1644; J1940; J2405; Q9967

== ENCOUNTER → 2023-07-20 09:35 | Outpatient (CLI) | payer MEDICARE, OTHER, SELFPAY ==
[2022-12-31 21:48] VITALS: BMI 30.9
--- NOTE | 2023-07-21 00:15 | DI.NM.S_ITS ---
DATE OF SERVICE: 07/20/2023 PROCEDURE: Pharmacological perfusion study. INDICATIONS: Atrial fibrillation. RADIOPHARMACEUTICAL: 26.1 millicurie technetium-99m Myoview IV was injected at stress and 12.2 millicurie technetium-99m Myoview IV was injected at rest. CARDIAC STRESS: The patient underwent IV Lexiscan perfusion study under the supervision of an attending staff using standard IV Lexiscan as per protocol. The patient remained hemodynamically stable. Baseline blood pressure 132/90. Baseline rhythm sinus with right bundle branch block and left anterior fascicular block. The patient also had some intermittent PACs and PVCs. During stress, no new convincing ischemic changes seen. The patient had minimal dyspnea. Also minimal chest discomfort during Lexiscan. RAW DATA: There is increased subdiaphragmatic activity. Diaphragmatic shadow seen. The patient's weight is 235 pounds. Gated study, stress and resting LV ejection fraction 52% without any obvious wall motion abnormalities. Resting end-diastolic 155 mL. TID ratio 1.05, which is within normal limits. Lung/heart ratio 0.26, which is within normal limits. MYOCARDIAL PERFUSION SCAN: Please note that there are no stress prone images. The patient refused to have the stress prone images. Resting supine and stress supine images were compared to each other. There appears to be predominantly fixed, large size, moderate to severely decreased perfusion of inferior wall extending into the inferior apex. The patient also has predominantly fixed, small size, mildly decreased perfusion of basal anterior wall. No significant reversibility. In the absence of the stress prone images, unable to distinguish true infarction versus diaphragmatic tissue attenuation artifact. CONCLUSION: 1. No significant reversible ischemia. 2. Predominantly fixed, large size, moderate to severely decreased perfusion of inferior wall extending into the inferoapex and mildly decreased predominantly fixed basal anterior wall defect. The patient's weight is 235 pounds. On raw images, increased subdiaphragmatic activity and hot spot near the inferior border of the heart. I do not see any pick up worker wall motion abnormalities. There are no stress prone images to distinguish tissue attenuation artifact versus true infarction, however, based on preserved wall motion and the patient's weight of 235 pounds and abnormalities seen during raw images, there is a possibility of tissue attenuation artifact, however, one cannot rule out nontransmural old inferior wall myocardial infarction and basal anterior wall myocardial infarction. Correlate clinically. In the absence of reversible ischemia and overall preserved left ventricular function, not very high risk perfusion scan. Luis Paula - MANDO/lauri/SHREYAS doc#: [id number]/job#: [id number] dd: 07/20/2023 17:00:00 dt: 07/21/2023 00:04:00 DICTATING MD/COPIES TO: Beth Nj MD COPIES MNE: ISAEL;
== END ==
LOC: NUCM 09:37
PROVIDERS: PCP Internal Medicine; Referring Provider Internal Medicine Cardiovascular Disease; Visit Provider Internal Medicine Cardiovascular Disease
DX: I48.91 Unspecified atrial fibrillation (principal)
CPT/HCPCS: 78452; 93017; A9502; J2785

== ENCOUNTER → 2023-09-07 09:02 | Outpatient (CLI) | payer MEDICARE, OTHER, SELFPAY ==
[2022-12-31 21:48] VITALS: BMI 30.9
--- OUTSIDE RECORDS SUMMARY | 2023-08-12 11:12 | XMS_ITS | Referral Summary ---
Author Name Unknown Organization [facility] Address [address] [place] [address] Care Team Providers Care Concrete Finisher Name Role Phone Pito Alfredo Primary Care Provider [phone] Reason for Referral * Diagnostic Imaging (Routine) - Pending Review Specialty Diagnoses / Procedures Referred By Contac t Referred To Contact Diagnoses Paroxysmal atrial fibrillation ([facility]) Procedures ECHOCARDIOGRAM COMPLETE Lyndsay Charles ARNP [address] [place] [id number] [address] Referral ID Status Reason Start Date Expiration Date Visits Requested Visits Authorized [id number] Pending Review Specialty Services Required 07/29/2023 07/23/2024 1 1 * Consultation (Routine) - Authorized Specialty Diagnoses / Procedures Referred By Contac t Referred To Contact Cardiology Diagnoses Paroxysmal atrial fibrillation ([facility]) Lyndsay Charles ARNP [address] [place] [id number] [address] Referral ID Status Reason Start Date Expiration Date Visits Requested Visits Authorized [id number] Authorized Specialty Services Required 07/29/2023 07/23/2024 1 1 Reason for Visit * Reason Comments Atrial Fibrillation Encounter Details Date Type Department Care Team Description 07/29/2023 9:30 AM PST Office Visit [facility] Cardiology [address], [address] [place] [id number] Lyndsay Charles, [address] [place] [address] Paroxysmal atrial fibrillation (CMS-HCC) (Primary Dx); Hypercholesteremia Allergies No known active allergiesdocumented as of this encounter (statuses as of 08/11/2023) Medications Medication Sig Dispensed Refills Start Date End Date Status apixaban (ELIQUIS) 5 mg tablet Take 1 tablet (5 mg total) by mouth 2 (two) times a day 0 Active clobetasoL (TEMOVATE) 0.05 % ointment Apply topically 2 (two) times a day 0 Active furosemide (LASIX) 40 mg tablet Take 1 tablet (40 mg total) by mouth 40 mg Wed, Wed, Wednesday 0 Active lisinopriL (PRINIVIL) 40 mg tablet Take 1 tablet (40 mg total) by mouth daily 0 Active loratadine (CLARITIN) 10 mg tablet Take 1 tablet (10 mg total) by mouth daily 0 Active polyethylene glycol (GLYCOLAX) 17 gram/dose powder Take 17 g by mouth daily 0 Active spironolactone (ALDACTONE) 25 mg tablet Take 0.5 tablets (12.5 mg total) by mouth daily 0 Active valACYclovir (VALTREX) 1 gram tablet Take 1 tablet (1,000 mg total) by mouth 2 (two) times a day 1 tab twice daily for a week only when flare up 0 Active zolpidem (AMBIEN) 10 mg tablet Take 1 tablet (10 mg total) by mouth nightly as needed for sleep 0 Active metoprolol succinate XL (TOPROL-XL) 50 mg 24 hr tablet Take 0.5 tablets (25 mg total) by mouth 2 (two) times a day 90 tablet 3 06/29/2023 Active amiodarone (PACERONE) 100 mg tabletIndications: Paroxysmal atrial fibrillation (CMS-HCC) Sig 2 tabs PO BID for 1 week, then 1 tab PO BID for 1 week, then 1 tab PO daily therafter. 90 tablet 3 07/29/2023 Active amiodarone (PACERONE) 200 mg tablet Sig 2 tabs PO BID for 1 week, then 1 tab PO BID for 1 week, then 1 tab PO daily therafter. 90 tablet 3 06/17/2023 4 Discontinued documented as of this encounter (statuses as of 08/11/2023) Active Problems Problem Noted Date Diagnosed Date Atrial fibrillation 06/17/2023 Essential hypertension 06/17/2023 documented as of this encounter (statuses as of 08/11/2023) Social History Tobacco Use Types Packs/Day Years Used Date Smoking Tobacco: Former Cigars Smokeless Tobacco: Never Tobacco Cessation:Counseling Given: Not Answered Alcohol Use Standard Drinks/Week Comments Yes 10 (1 standard drink = 0.6 oz pure alcohol) Double Martini Every Late afternoon Sex and Gender Information Value Date Recorded Sex Assigned at Not on file Gender Identity Not on file Sexual Orientation Not on file Job Start Date Occupation Industry Not on file Not on file Not on file documented as of this encounter Last Filed Vital Signs Vital Sign Reading Time Taken Comments Blood Pressure 128/62 07/29/2023 9:27 AM PST Pulse 57 07/29/2023 9:27 AM PST Temperature - - Respiratory Rate - - Oxygen Saturation - - Inhaled Oxygen Concentration - - Weight 104 kg (230 lb) 07/29/2023 9:27 AM PST Height 189.2 cm (6' 2.5) 07/29/2023 9:27 AM PST Body Mass Index 29.14 07/29/2023 9:27 AM PST documented in this encounter Progress Notes * BEBE Washington - 07/29/2023 9:30 AM PST Take 100 mg of the amiodarone (1/2 of your current 200mg tablet), until you run out of the 200 mg tablets, then just take the 100mg tablets. I ordered labs to check your thyroid, and liver function. I am also ordering a lipid panel since you stopped your statin. Because of the low squeezing function of your heart on your echocardiogram, I am referring you to our automatic casting machine operator. I am ordering a echocardiogram to be done sometime in September. * Lyndsay Charles, MICROBIOLOGY INSTRUCTOR - 07/29/2023 9:30 AM PST Subjective Patient ID: Luis Paula is a 78 y.o. male that had no chief complaint listed for this encounter. HPI: 78-year-old male with history of hypertension, DVT, congestive heart failure, persistent atrial fibrillation (sp DCCV 06/29/2023; on amiodarone, metoprolol succinate, Eliquis) here for 1 month follow-up post cardioversion. Luis was diagnosed atrial fibrillation (12/2022) when he became fatigued and short winded, and hadsevere lower extremity edema after a cross-country flight. In the hospital he was found to be in atrial fibrillation with RVR and his LVEF was 30%. He was consulted by Dr. Paul in May 2023 he was started on amiodarone and cardioverted June 29, 2023, the cardioversion was successful. Today Luis is in sinus rhythm, he feels much better since being out of atrial fibrillation. He denies palpitations, chest pain, orthopnea, shortness of breath, dizziness, lightheadedness, presyncope/syncope. He does say he occasionally gets a chest tightness. He has been watching his weights and he only takes his Lasix if he has gained over 2 pounds in a day. He stopped taking his statin at the advice of his quality assurance intern. Labs 06/29/2023: Low sodium, reduced kidney function. 2022 slightly elevated liver enzymes, normal magnesium, normal thyroid function EKG today sinus bradycardia with RBBB, left axis deviation QTc 501 ms, QRSD 146 ms, 2 multifocal PVCs ECG 06/29/2023 sinus bradycardia, right bundle branch block QRSD 145 QTc 506 ms Nuc med stress test 07/20/2023 fixed large size moderate to severely decreased perfusion of the inferior wall extending to the inferior apex and predominantly fixed small size mildly decreased perfusion to the basal anterior wall Echocardiogram 01/01/2023: LVEF 25 to 35%, lateral inferior lateral and anterior wall all appear shawna hypokinetic, severely dilated right atrium, normal size left atrium Past Medical History: Diagnosis Date Arrhythmia Atrial fibrillation [place] December 2022 CHF (congestive heart failure) [place] December 2022 Deep vein thrombosis [place] 2011 Hypertension 1985 Past Surgical History: Procedure Laterality Date OTHER SURGICAL HISTORY pelvis SMALL INTESTINE SURGERY TONSILLECTOMY No family history on file. Social History Socioeconomic History Marital status: Unknown Tobacco Use Smoking status: Former Types: Cigars Smokeless tobacco: Never Substance and Sexual Activity Alcohol use: Yes Alcohol/week: 10.0 standard drinks of alcohol Types: 3 Glasses of wine, 7 Shots of liquor per week Comment: Double Martini Every Late afternoon Drug use: Never Sexual activity: Not Currently Partners: Female Comment: N/A 78yo No Known Allergies Current Medication List Sig amiodarone (PACERONE) 100 mg tablet Sig 2 tabs PO BID for 1 week, then 1 tab PO BID for 1 week, then 1 tab PO daily therafter. apixaban (ELIQUIS) 5 mg tablet Take 1 tablet (5 mg total) by mouth 2 (two) times a day clobetasoL (TEMOVATE) 0.05 % ointment Apply topically 2 (two) times a day furosemide (LASIX) 40 mg tablet Take 1 tablet (40 mg total) by mouth 40 mg Mon, Wed, Wednesday lisinopriL (PRINIVIL) 40 mg tablet Take 1 tablet (40 mg total) by mouth daily loratadine (CLARITIN) 10 mg tablet Take 1 tablet (10 mg total) by mouth daily metoprolol succinate XL (TOPROL-XL) 50 mg 24 hr tablet Take 0.5 tablets (25 mg total) by mouth 2 (two) times a day polyethylene glycol (GLYCOLAX) 17 gram/dose powder Take 17 g by mouth daily spironolactone (ALDACTONE) 25 mg tablet Take 0.5 tablets (12.5 mg total) by mouth daily valACYclovir (VALTREX) 1 gram tablet Take 1 tablet (1,000 mg total) by mouth 2 (two) times a day 1 tab twice daily for a week only when flare up zolpidem (AMBIEN) 10 mg tablet Take 1 tablet (10 mg total) by mouth nightly as needed for sleep amiodarone (PACERONE) 200 mg tablet (Discontinued) Sig 2 tabs PO BID for 1 week, then 1 tab PO BID for 1 week, then 1 tab PO daily therafter. Review of Systems Respiratory: Positive for chest tightness. Negative for shortness of breath. Cardiovascular: Negative for chest pain, palpitations and leg swelling. Neurological: Negative for dizziness, syncope and light-headedness. Objective BP 128/62 Pulse (!) 57 Ht 1.892 m Wt 104 kg BMI 29.14 kg/m?? Physical Exam: General Appearance: Well-nourished, pleasant, cooperative, no apparent distress HEET: Normocephalic atraumatic, EOMI, no scleral icterus, no arcus, tongue midline, mucous membranes moist, good dentition Neck: No obvious mass, supple Extremities: No clubbing, cyanosis or edema Neuro: Alert, no facial droop, tongue midline, no gross motor deficits Psych: Appropriate affect, normal mentation and memory Skin: Warm and dry, no rashes on face, neck, and lower extremities Assessment/Plan Diagnoses and all orders for this visit: Paroxysmal atrial fibrillation (CMS-HCC) - ECG 12 Lead (Clinic - Future); Future - amiodarone (PACERONE) 100 mg tablet; Sig 2 tabs PO BID for 1 week, then 1 tab PO BID for 1 week, then 1 tab PO daily therafter. - Comprehensive Metabolic Panel (CMP) Expires 12 Months; Future - Thyroid Stimulating Hormone, Reflex to Free T4; Future - Lipid panel (Fasting); Future - *SRC MV Referral to Cardiology - ECHOCARDIOGRAM COMPLETE; Future Hypercholesteremia - Lipid panel (Fasting); Future Assessment/Plan Comments: Luis is an 78-year-old male with reduced LV function and a history of hypertension, DVT, congestive heart failure, persistent atrial fibrillation ([facility] 06/29/2023; on amiodarone, metoprolol succinate, Eliquis) here for 1 month follow-up post cardioversion. Today he is in sinus bradycardia, he denies dizziness, lightheadedness, and presyncope/syncope. I instructed him to contact us if he is having any of the symptoms and we can further reduce his metoprolol dose. Today I am reducing his dose of amiodarone to 100 mg daily. I am ordering labs to check his liver and thyroid function. After his next visit we will schedule his PFT with [facility]. We discussed his options for rhythm control, to include a PVI ablation. He decided that he would like to stay on amiodarone for now. Since he is off his statin I ordered a lipid panel. Also because of the changes seen on his echocardiogram and his nuclear medicine stress test I referred him to general/interventional cardiology. I reordered a echocardiogram to be done in September to see if his LV function has improved. We will see himback in 6 months. Plan: 1. reduce amiodarone to 100 mg daily 2. Complete CMP,TSH and lipid panel labs 3. Echocardiogram complete in September 4. Consult with cardiology for heart failure and possible CAD 5. Follow-up in 6 months Electronically signed by BEBE Washington 07/29/2023 10:16 AM documented in this encounter Plan of Treatment Pending Results Name Type Priority Associated Diagnoses Date /Time ECG 12 Lead (Clinic - Future) ECG Routine Paroxysmal atrial fibrillation ([facility]) 07/29/2023 9:23 AM PST Scheduled Orders Name Type Priority Associated Diagnoses Orde r Schedule ECHOCARDIOGRAM COMPLETE Imaging Routine Paroxysmal atrial fibrillation [place] Expected: 09/29/2023, Expires: 07/28/2025 Scheduled Referrals Name Type Priority Associated Diagnoses Orde r Schedule *SRC MV Referral to Cardiology Outpatient Referral Routine Paroxysmal atrial fibrillation ([facility]) Ordered: 07/29/2023 documented as of this encounter Procedures Procedure Name Priority Date/Time Associated Diagnosis Comments ECG 12-LEAD Routine 07/29/2023 9:23 AM PST Paroxysmal atrial fibrillation ([facility]) documented in this encounter Results * (ABNORMAL) Lipid panel (Fasting) (08/02/2023 6:47 AM PST) Pathologist [facility] Cholesterol, Total 296(H) 100 - 199 mg/dL [facility] 001 Triglycerides 106 0 - 149 mg/dL [facility] 001 HDL Cholesterol 62 >39 mg/dL REFE RENCE [facility] 001 VLDL Cholesterol 18 5 - 40 mg/dL [facility] 001 LDL Cholesterol 216(H) 0 - 99 mg/dL [facility] 001 Comment Comment [facility] 001 Comment: Possible Familial Hypercholesterolemia. FH should be suspected when fasting LDL cholesterol is above 189 mg/dL or non-HDL cholesterol is above 219 mg/dL. A family history of high cholesterol and heart disease in 1st degree relatives should be collected. J Clin Lipidol 2011;5:133-140 Blood Venous blood / Unknown 08/02/2023 6:47 AM PST 08/01/2023 9:00 PM PST Narrative [facility] - 08/03/2023 5:12 AM PST Performed at: ??01 - [facility] [place] [address] ??[address] ??[id number] Bolt Cutter: Joel Duarte MD, Phone: ??[phone] Lyndsay BENSONP LAB BLOOD ORDERABLES Performing Organization Address [facility]/ZIP Co de Phone Number [facility] [address] [address], [place] [phone] [facility] 001 * Thyroid Stimulating Hormone, Reflex to Free T4 (08/02/2023 6:47 AM PST) TSH 2.580 0.450 - 4.500 uIU/mL [facility] 001 Blood Venous blood / Unknown 08/02/2023 6:47 AM PST 08/01/2023 9:00 PM PST Narrative [facility] - 08/03/2023 8:10 AM PST Performed at: ?? - [facility] [address] ??[address] ??[id number] Bolt Cutter: Joel Duarte MD, Phone: ??[phone] Specimen Comment: A courtesy copy of this report has been sent to [phone], [phone] Specimen Comment: [id number] Lyndsay SPENCE LAB BLOOD ORDERABLES Performing Organization Address [facility]/ZIP Co de Phone Number [id number] [address], [place] [phone] [facility] 001 * (ABNORMAL) Comprehensive Metabolic Panel (CMP) Expires 12 Months (08/02/2023 6:47 AM PST) Glucose 115(H) 70 - 99 mg/dL [facility] 001 BUN 22 8 - 27 mg/dL [facility] 001 Creatinine 1.43(H) 0.76 - 1.27 mg/dL [facility] 001 eGFR (CKD-EPI 2020) 50(L) >59 mL/min/1.7 3 [facility] 001 BUN/Creatinine Ratio 15 10 - 24 [facility] 001 Sodium 139 134 - 144 mmol/L [facility] 001 Potassium 5.1 3.5 - 5.2 mmol/L [facility] 001 Chloride 102 96 - 106 mmol/L [facility] 001 CO2 22 20 - 29 mmol/L [facility] 001 Calcium 9.7 8.6 - 10.2 mg/dL [facility] 001 Total Protein 7.1 6.0 - 8.5 g/dL [facility] 001 Albumin 4.5 3.8 - 4.8 g/dL [facility] 001 Globulin, Total 2.6 1.5 - 4.5 g/dL [facility] 001 A/G Ratio 1.7 1.2 - 2.2 [facility] 001 Total Bilirubin 0.9 0.0 - 1.2 mg/dL [facility] 001 Alkaline Phosphatase 61 44 - 121 IU/L [facility] 001 AST 26 0 - 40 IU/L [facility] 001 ALT 32 0 - 44 IU/L [facility] 001 Blood Venous blood / Unknown 08/02/2023 6:47 AM PST 08/01/2023 9:00 PM PST Narrative [facility] - 08/03/2023 5:12 AM PST Performed at: ??01 - [facility] [place] [address] ??[place] [address], [place], [place] ??[id number] Bolt Cutter: Joel Duarte MD, Phone: ??[phone] Lyndsay SPENCE LAB BLOOD ORDERABLES [facility] [address] [place] [address], [facility] 001 documented in this encounter Visit Diagnoses Diagnosis Paroxysmal atrial fibrillation ([facility])- Primary Atrial fibrillation Hypercholesteremia Pure hypercholesterolemia Paroxysmal atrial fibrillation (CMS-HCC) Atrial fibrillation Hypercholesteremia Pure hypercholesterolemia documented in this encounter Advance Directives Latest Code Status on File Code Status Date Activated Date Inactivated Comments Full Code 06/29/2023 7:54 AM 06/30/2023 2:36 AM Care Teams Concrete Finisher Relationship Specialty Start Date End Date Pito Alfredo [address] [place] [address] PCP - General Internal Medicine 02/09/23 documented as of this encounter
--- NOTE | 2023-09-07 09:04 | DI.ECHO.S_ITS ---
[facility] +---------+ : : [address] : : : : [id number] : : : : Phone: [phone]+ Echocardiogram Report + + :Name: ADRIANA RAY Study Date: 09/07/2023 Height: 74 in : :[facility] ReadingLocation: Weight: 220 lb : : Gender: Male BSA: 2.3 m2 : :: 1945 Age: 78 yrs BP: 164/98 mmHg: :Reason For Study: ATRIAL FIBRILLATION : :Ordering Physician: ANGEL BOONE : :a[place] [facility]ENCE Performed By: Nona Freed : :Referring: ANGEL BOONE : + + Interpretation Summary 1) Normal left ventricular thickness and size with mildly to moderately reduced systolic function (EF 40-45%). 2) Normal right ventricular size and function. 3) No significant valvular abnormalities. 4) Compared to Echo done 01/01/2023, LVEF has improved from 30% to 40-45% on this study. Procedure: A two-dimensional transthoracic echocardiogram with color flow and Doppler was performed. The study quality was technically adequate. Comparison is made with the echocardiogram of 01/01/2023. The patient was in sinus rhythm with heart rates between 57-72 bpm during the exam. Left Ventricle: The left ventricle is normal in size and wall thickness. The ejection fraction is estimated to be 40-45%. There is mild to moderate global hypokinesis of the left ventricle. Diastolic parameters suggest a pseudonormalization pattern, consistent with probable elevated filling pressures. Right Ventricle: The right ventricle is normal in size and function. Atria: The left atrium is moderately dilated. Right atrial size is normal. There is no Doppler evidence for an interatrial shunt. Mitral Valve: There is mild mitral annular calcification. The mitral valve leaflets appear mildly thickened, but open well. There is mild mitral regurgitation. Aortic Valve: The aortic valve is trileaflet. The aortic valve opens well. The aortic valve is slightly calcified. There is no aortic valve stenosis. No aortic regurgitation is present. Tricuspid Valve: The tricuspid valve is normal in structure and function. There is mild tricuspid regurgitation. The right ventricular systolic pressure is estimated to be at least 37 mmHg based on an estimated right atrial pressure of 3 mm Hg. Pulmonic Valve: The pulmonic valve leaflets are thin and pliable; valve motion is normal. There is no pulmonic valvular regurgitation. Great Vessels: The aortic root is normal size. The dimensions of the ascending aorta are normal. The IVC is of normal diameter and collapses greater than 50% with a sniff. This suggests a low right atrial pressure of 3 mm Hg. Pericardium/ Pleura There is no pericardial effusion. There is no pleural effusion. MMode/2D Measurements & Calculations LVIDd: 5.7 cm LVOT diam: 2.0 cm LVIDs: 4.6 cm Ao root diam: 3.4 cm FS: 19.4 % asc Aorta Diam: 3.3 cm EPSS: 1.1 cm Ao Arch Diam (Prox Trans): 3.4 cm IVSd: 1.0 cm LVPWd: 0.89 cm LV olivera. diameter/BSA (cm/m^2): 2.5 LV sys. diameter/BSA (cm/m^2): 2.0 LA A2 area: 27.2 cm2 RA long axis: 6.0 cm LA A4 area: 31.2 cm2 RA area: 22.3 cm2 LA length (vol): 7.1 cm RA vol: 70.5 ml LA vol: 100.8 ml RA : 31.2 ml/m2 LA vol index: 44.6 ml/m2 IVC diam: 2.0 cm RVD1 (basal): 3.9 cm RVD2 (mid): 2.5 cm TAPSE: 2.0 cm Doppler Measurements & Calculations Ao V2 max: 135.0 cm/sec LVOT Max Edinson: 95.4 cm/sec Ao V2 mean: 97.1 cm/sec LV V1 max P.6 mmHg Ao max P.3 mmHg LV V1 VTI: 22.1 cm Ao mean P.3 mmHg ANGELY(I,D): 2.2 cm2 Ao V2 VTI: 33.1 cm ANGELY(V,D): 2.3 cm2 sev ratio: 0.67 ANGELY indexed to BSA (cm^2/m^2): 0.96 MV E max edinson: 72.3 cm/sec TR max edinson: 293.4 cm/sec MV A max edinson: 72.7 cm/sec TR max P.4 mmHg MV E/A: 0.99 PA V2 max: 83.4 cm/sec Med Peak E' Edinson: 4.2 cm/sec PA V2 mean: 63.8 cm/sec E/E' med: 17.1 PA mean P.8 mmHg Lat Peak E' Edinson: 6.2 cm/sec PA pr(Accel): 46.5 mmHg E/E' lat: 11.7 E/e' average: 14.4 MV dec time: 0.21 sec SV(LVOT): 72.0 ml Reading Physician:03:04 PM
== END ==
LOC: ECHO 09:04
PROVIDERS: PCP Internal Medicine; Referring Provider Nurse Practitioner Family; Visit Provider Nurse Practitioner Family
DX: I48.0 Paroxysmal atrial fibrillation (principal); I08.1 Rheumatic disorders of both mitral and tricuspid valves
CPT/HCPCS: 93306

== ENCOUNTER → 2024-05-09 08:41 | Outpatient (CLI) | payer MEDICARE, OTHER, SELFPAY ==
[2022-12-31 21:48] VITALS: BMI 30.9
--- NOTE | 2024-05-09 08:43 | DI.ECHO.S_ITS ---
[facility] : : [address] : : [place] : : [id number] : : Phone: [phone] Echocardiogram Report + + :Name: ADRIANA RAY Study Date: 05/09/2024 Height: 74 in : :[facility] ReadingLocation: Weight: 220 lb : : Gender: Male BSA: 2.3 m2 : :: 1945 Age: 79 yrs BP: 144/73 mmHg: :Reason For Study: SYSTOLIC HEART FAILURE : :Ordering Physician: : :HAM BUNN Performed By: Bhavesh Tellez : :Referring: HAM BUNN : + + Interpretation Summary 1) Normal left ventricular thickness and size with mildly reduced systolic function (EF 45-50%). 2) Normal right ventricular size and function. 3) No significant valvular abnormalities. 4) Compared to Echo done 09/07/2023, LVEF has increased from 40-45% to 45-50% on this study. Procedure: A two-dimensional transthoracic echocardiogram with color flow and Doppler was performed. The study quality was technically good. Comparison is made with the echocardiogram of 09/07/2023. The patient was in sinus rhythm during the exam. Left Ventricle: The left ventricle is normal in size. There is normal left ventricular wall thickness. There is no ventricular septal defect visualized. The ejection fraction is estimated to be 45-50%. There is mild global hypokinesis of the left ventricle. Diastolic parameters suggest a pseudonormalization pattern, consistent with probable elevated filling pressures. Right Ventricle: The right ventricle is normal in size and function. Atria: The left atrium is moderately dilated. Right atrial size is normal. There is no Doppler evidence for an interatrial shunt. Mitral Valve: The mitral valve leaflets appear mildly thickened, but open well. The mitral valve leaflets appear to open well. There is mild mitral annular calcification. There is mild mitral regurgitation. Aortic Valve: The aortic valve is trileaflet. The aortic valve opens well. The aortic valve is mildly calcified. There is no aortic valve stenosis. No aortic regurgitation is present. Tricuspid Valve: The tricuspid valve leaflets are thin and pliable. There is mild tricuspid regurgitation. The right ventricular systolic pressure is estimated to be at least 37 mmHg based on an estimated right atrial pressure of 8 mm Hg. Pulmonic Valve: The pulmonic valve leaflets are thin and pliable; valve motion is normal. There is trace pulmonic regurgitation. Great Vessels: The aortic root is mildly dilated. The dimensions of the ascending aorta are normal. The pulmonary artery is normal size. The IVC is dilated (diameter is greater than 2.1 cm) yet it collapses greater than 50% with a sniff. This suggests a right atrial pressure of 8 mm Hg. Pericardium/ Pleura There is no pericardial effusion. There is no pleural effusion. MMode/2D Measurements & Calculations LVIDd: 5.0 cm LVOT diam: 2.1 cm LVIDs: 3.9 cm Ao root diam: 3.5 cm FS: 20.8 % asc Aorta Diam: 3.3 cm EPSS: 0.86 cm IVSd: 0.97 cm LVPWd: 1.1 cm LV olivera. diameter/BSA (cm/m^2): 2.2 LV sys. diameter/BSA (cm/m^2): 1.7 LA A2 area: 27.1 cm2 RA long axis: 5.1 cm LA A4 area: 28.9 cm2 RA area: 18.4 cm2 LA length (vol): 6.5 cm RA vol: 56.1 ml LA vol: 101.8 ml RA : 24.8 ml/m2 LA vol index: 45.0 ml/m2 IVC diam: 2.3 cm RVD1 (basal): 3.6 cm RVD2 (mid): 3.1 cm TAPSE: 2.4 cm Doppler Measurements & Calculations Ao V2 max: 112.3 cm/sec LVOT Max Edinson: 96.0 cm/sec Ao V2 mean: 82.4 cm/sec LV V1 max P.7 mmHg Ao max P.0 mmHg LV V1 VTI: 27.7 cm Ao mean P.9 mmHg ANGELY(I,D): 3.3 cm2 Ao V2 VTI: 29.8 cm ANGELY(V,D): 3.1 cm2 sev ratio: 0.93 ANGELY indexed to BSA (cm^2/m^2): 1.5 MV E max edinson: 71.3 cm/sec TR max edinson: 273.0 cm/sec MV A max edinson: 72.7 cm/sec TR max P.8 mmHg MV E/A: 0.98 PA V2 max: 74.4 cm/sec Med Peak E' Edinson: 5.0 cm/sec PA V2 mean: 47.1 cm/sec E/E' med: 14.4 PA mean P.0 mmHg Lat Peak E' Edinson: 6.4 cm/sec PA pr(Accel): 20.8 mmHg E/E' lat: 11.2 E/e' average: 12.8 MV dec time: 0.18 sec SV([facility]): 99.2 ml Reading Physician:12:[id number] PM
[2024-05-09 11:05] LABS: Hematocrit 48.5 % (41-53); Hemoglobin 16.3 g/dL (13.5-17.5); Mean Corpuscular HGB Conc 33.7 % (30-36); Mean Corpuscular Hemoglobin 35.2 PG (26-34); Mean Corpuscular Volume 104.5 fL (80-100); Platelet Count 305 X10^3/uL (150-400); Red Blood Cell Count 4.64 X10^6/uL (4.5-5.9); Red Cell Distribution Width 13.7 % (11.6-14.8); White Blood Cell Count 8.4 X10^3/uL (4.5-11.0)
[2024-05-09 11:26] LABS: Blood Urea Nitrogen 21 mg/dL (9-20); Calcium 9.9 mg/dL (8.4-10.2); Carbon Dioxide 28 mmol/L (22-32); Chloride 104 mmol/L (98-107); Cholesterol 198 mg/dL (140-199); Estimated Glomerular Filt Rate > 60 mL/min (>60); Glucose 107 mg/dL (80-110); HDL Cholesterol 78 mg/dL (40-60); HEMOLYSIS < 15 (0-50); LDL Cholesterol Calculated 104 mg/dL (<100); Sodium 136 mmol/L (137-145); Triglycerides 80 mg/dL (35-150)
[2024-05-09 11:29] LABS: Potassium 5.6 mmol/L (3.4-5.1)
== END ==
PROVIDERS: PCP Internal Medicine; Referring Provider Internal Medicine Cardiovascular Disease; Visit Provider Internal Medicine Cardiovascular Disease
DX: I50.22 Chronic systolic (congestive) heart failure (principal); I77.810 Thoracic aortic ectasia; I08.1 Rheumatic disorders of both mitral and tricuspid valves; R06.09 Other forms of dyspnea
CPT/HCPCS: 36415; 80048; 80061; 84443; 85027; 93306

== ENCOUNTER → 2024-11-09 12:41 | Outpatient (CLI) | payer MEDICARE, OTHER, SELFPAY ==
[2022-12-31 21:48] VITALS: BMI 30.9
[2024-11-09 13:23] LABS: Add Manual Diff / Slide Review NO; Basophils Absolute Auto 100 /uL (0-100); Basophils Percent Auto 0.8 % (0-2); Eosinophils Absolute Auto 300 /uL (0-450); Eosinophils Percent Auto 3.3 % (2-4); Hemoglobin 16.3 g/dL (13.5-17.5); Lymphocytes Absolute Auto 2000 /uL (1100-4500); Mean Corpuscular Hemoglobin 35.2 PG (26-34); Mean Corpuscular Volume 103.7 fL (80-100); Monocytes Absolute Auto 900 /uL (0-900); Monocytes Percent Auto 9.9 % (3-14); Neutrophils Absolute Auto 5600 /uL (1500-7000); Platelet Count 256 X10^3/uL (150-400); Red Blood Cell Count 4.63 X10^6/uL (4.5-5.9); Red Cell Distribution Width 14.6 % (11.6-14.8); White Blood Cell Count 8.9 X10^3/uL (4.5-11.0)
[2024-11-09 13:43] LABS: Appearance Urine UA CLEAR; Bilirubin Urine UA NEGATIVE (NEGATIVE); Color Urine UA YELLOW; Glucose Urine UA 3+ g/dL (Negative); Ketones Urine UA NEGATIVE (NEGATIVE); Leukocyte Esterase Urine UA NEGATIVE (NEGATIVE); Nitrite Urine UA NEGATIVE (Negative); Occult Blood Urine UA NEGATIVE (Negative); Protein Urine UA NEGATIVE (Negative); Specific Gravity Urine UA 1.015 (1.000-1.035)
[2024-11-09 13:44] LABS: Blood Urea Nitrogen 23 mg/dL (9-20); Calcium 9.1 mg/dL (8.4-10.2); Carbon Dioxide 25 mmol/L (22-32); Chloride 105 mmol/L (98-107); Estimated Glomerular Filt Rate > 60 mL/min (>60); Glucose 121 mg/dL (70-99); HEMOLYSIS 29 (0-50); Potassium 4.3 mmol/L (3.4-5.1); Sodium 139 mmol/L (137-145)
[2024-11-09 14:31] LABS: Bacteria Urine None Seen; Culture Indicated Urine Cult Not Indicated; RBC Urine None Seen (0-5/HPF); Squamous Epithelial Cell Urine None Seen (0-5/HPF); Urine Volume 10mL (spun); WBC Urine None Seen (0-5/HPF)
[2024-11-09 15:31] LABS: TSH w/ Reflex to FT4 1.12 uIU/mL (0.47-4.68)
== END ==
PROVIDERS: PCP Internal Medicine; Referring Provider Internal Medicine Cardiovascular Disease; Visit Provider Internal Medicine Cardiovascular Disease
DX: Z51.81 Encounter for therapeutic drug level monitoring (principal); I48.19 Other persistent atrial fibrillation; I50.22 Chronic systolic (congestive) heart failure; R35.0 Frequency of micturition; Z79.899 Other long term (current) drug therapy
CPT/HCPCS: 36415; 80048; 81001; 84443; 85025